=== PATIENT | male | born 1935 | race Caucasian/White ===

== ENCOUNTER 2019-10-07 23:20 | Inpatient (IN) | payer MEDICARE ==
[2019-10-08] MEDS ORDERED: Furosemide 40 MG/4 ML VIAL ONE (00:27)
[2019-10-08] MEDS ORDERED: Acetaminophen 500 MG TAB ONE (00:37)
--- NOTE | 2019-10-08 00:51 | PDOC.FPRHP ---
- History of Present Illness Chief Complaint: shortness of breath History of Present Illness: Mr. Borges is an 84yoM who presents as a transfer from [place] for increasing shortness of breath. He has a known history of congestive heart failure. He states the shortness of breath has been worsening over the last several weeks. He is unable to give much more history than this, he is a very poor historian. He states he lives alone in [place] on a ranch. ED Course: 40mg IV lasix, 1g Tylenol - Allergies/Adverse Reactions Allergies Allergy/AdvReac Type Severity Reaction Status Date / Time diltiazem Allergy Verified 10/08/19 02:48 - Home Medications Medication Instructions Recorded Confirmed Type Allopurinol 100 mg PO DAILY 10/08/19 10/08/19 History Carvedilol [Coreg] 25 mg PO BID 10/08/19 10/08/19 History Furosemide [Lasix] 40 mg PO DAILY 10/08/19 10/08/19 History cloNIDine [Catapres] 0.1 mg PO DAILY 10/08/19 10/08/19 History - History PMHx: CHF CKD (Previously on dialysis) H/o [place] (~2014) Chronic atrial fibrillation Gout HTN PSHx: Denies, or does not recall. FHx: Unable to ascertain Social: smoking history, former smoker. drinks 3 beers/day. - Review of Systems General: denies: fever/chills, weight/appetite/sleep changes, night sweats Eyes: denies: eye pain, vision changes ENT: denies: nasal congestion, rhinorrhea Respiratory: reports: shortness of breath, exercise intolerance. denies: cough , congestion Cardiovascular: reports: edema, paroxysmal nocturnal dyspnea, orthopnea. denies : chest pain, palpitation Gastrointestinal: denies: nausea, vomiting, diarrhea, constipation, abdominal pain Genitourinary: denies: incontinence, dysuria, polyuria Skin: denies: rashes, lesions, jaundice Musculoskeletal: reports: swelling. denies: pain, tenderness, stiffness Neurological: denies: numbness, syncope, seizure - Vital signs BP: 122/58, Pulse: 89, Resp: 20, Temp: 98.9 (Oral), Pain: 7, O2 sat: 99 on (3L Oxygen), Time: 10/07/2019 23:22 Weight 132kg - Physical Exam Constitutional: NAD, awake, alert and oriented -Constitutional: tired appearing HEENT: normocephalic and atraumatic, PERRLA, EOMI, conjunctiva clear, grossly normal vision, grossly normal hearing, MMM -HEENT: Bilateral ectropion Neck: supple, trachea midline Heart: normal S1/S2, no murmurs/rubs/gallops, pulses present -Heart: Irregularly irregular rhythm, tachycardic Lungs: no respiratory distress -Lungs: Poor air movement. Crackles heard in the lung bases bilaterally. Abdomen: soft, non-tender, bowel sounds present Musculoskeletal: normal structure, normal tone Neurological: no focal deficit, normal sensation -Skin: Significant venous stasis dermatitis to BLE Heme/Lymphatic: no unusual bruising or bleeding Psychiatric: normal mood and affect, other (unable to provide medical history, although A&O x3.) FMR H&P: Results - Labs Result Diagrams: 10/09/19 07:18 10/09/19 07:18 Lab results: From [place]: Cr 5.2, BUN 68.3, Na 137, K 4.4, Cl 92, CO2 27, Glucose 80. Lactic acid 3.6 Troponin 0.465 BNP 4313.4 Hb 14.5 Hct 44.5 Platelets 141 WBC 23.73 21% bands, 58% neutrophils UA: Dark yellow, Blood: large, Protein >300, Nitrite and Leuk est negative, WBC 5-10, RBC 50-100, Bacteria trace, Gran cast few, rbc cast few. - EKG Interpretation EKG: Atrial fibrillation - Radiology Interpretation Chest x-ray Status: pending, report reviewed by me (Report pending. Appears fluid overloaded.) FMR H&P: A/P - Problem List (1) Congestive heart failure Current Visit: Yes Status: Acute Code(s): I50.9 - HEART FAILURE, UNSPECIFIED (2) Acute exacerbation of congestive heart failure Current Visit: Yes Status: Acute Code(s): I50.9 - HEART FAILURE, UNSPECIFIED (3) HTN (hypertension) Current Visit: Yes Status: Acute Code(s): I10 - ESSENTIAL (PRIMARY) HYPERTENSION (4) Atrial fibrillation Current Visit: Yes Status: Acute Code(s): I48.91 - UNSPECIFIED ATRIAL FIBRILLATION (5) Gout Current Visit: Yes Status: Acute Code(s): M10.9 - GOUT, UNSPECIFIED (6) NSTEMI (non-ST elevated myocardial infarction) Current Visit: Yes Status: Acute Code(s): I21.4 - NON-ST ELEVATION (NSTEMI) MYOCARDIAL INFARCTION - Plan CHF exacerbation - Echo here from 2014 showed EF 55-60%. - ECHO ordered for AM. - IV Lasix 80mg total tonight. Strict I/O. - Continue home coreg. NSTEMI - Tropinin 0.465 > 0.532. Trending trops. - Will initiate heparin drip and discuss with cardiology in the morning. VALERIE on CKD vs ESRD - He has a history of renal disease requiring dialysis for ~1.5 years in 2014 and was followed by Dr. Branch - Will consult Dr. Branch in the morning. - It is possible that the patient will require dialysis if he is unable to diurese. Bacterial pneumonia, presumed - Lactic acidosis of 3.6, WBC 23 with 21%bands, Procal 64 - Will empirically treat with Vancomycin and Cefepime - Repeat CBC in the am. HTN - Normotensive. Will continue coreg. Dispo: Stable Code: Full PCP: Julissa Savage We will need to contact Dr. Briceño's office tomorrow for medical records and complete medication reconciliation. FMR H&P: Upper Level - Plan Date/Time: 10/08/1949 IQasim DO, have evaluated this patient and agree with findings/plan as outlined by internal recruiter resident. Pertinent changes/additions are listed here. I was present for the entire history and physical exam and discussed in detail the assessment and plan with Dr. Nieves. 84 yo M with PMH of CKD that was previously on HD; however, was stopeed last year as renal function recovered, additionally has h/o HF. Unaware of chronic medications as his son is primary cat driver who helps with medication. Presents with one week history of worsening shortness of breath, denies productive cough and fever, Denies CP. Reports orthopnea and REYES. Pt was seen in outside ED and noted to have new O2 requirement in addition to white count with left shift. Additionally, pt had NSTEMI level troponin and elevated CKMB, but denies chest pain. On exam pt has s/s with chronoc fluid overload and LE pitting edema to knees. He is sitting in chair at bedside, unable to lay flat. He was given 40mg IV lasix. We will admit to telemetry and treat NSTEMI with heparin drip, CXR concerning for pneumonia, will treat with empiric abx. Hold lasix and fluids at this point for concern of mixed infectious and chf picture. Cont supplemental O2. Pt has AG acidosis likely 2/2 lactic acidosis, VSS, hold fluids and monitor volume status. Trend labs. Consult cards and nephro in am. Addendum - Attending - Attending Attestation Date/Time: 10/09/19 [id number] I personally evaluated the patient and discussed the management with Dr. Nieves I agree with the History, Examination, Assessment and Plan documented above with any addition or exceptions noted below - 84 yo mal with h/o CHF, A-fib, CKD with h/o HD in past presented c/o SOB and cough progressive over the last 2- 3 weeks. Denies any fever or sputum production. c/o right shoulder pain but denies any falls. Pain with movement. PMH/PSH/SH reviewed and agree with resident's documentation. Afebrile VSS. Exam repeated by me and agree with resident's documentation. Labs: WBC=17.1, H/H=14.7/45.4, Mhi=678, Na= 136, K=4.8 , Cl=92, CO2=20, BUN/Cr= 78/5.48 Diff= 58N/37B/4L. A/P: 1) VALERIE with CKD- nephrology consulted; continue gentle fluids. Monitor electrolytes. 2) Leukocytosis and bandemia- possible CAP- continue current abx.
[2019-10-08 00:59] LABS: CKMB 61.6 ng/mL (0-6.6)
[2019-10-08] MEDS ORDERED: Ondansetron PF 4 MG/2 ML Vial IVP PRN (01:17)
[2019-10-08] MEDS ORDERED: Senokot S 8.6-50 MG TAB PO PRN (01:17)
[2019-10-08 01:45] LABS: Hemoglobin 14.5 g/dL (14.0-18.0); Platelet Count 124 thou/uL (130-400)
[2019-10-08] MEDS ORDERED: Vancomycin HCl 1.5 GM in Sodium Chloride 0.9% 250 ML 300 ML IVPB SCH (02:00)
[2019-10-08] MEDS ORDERED: Aspirin Chewable 81 MG TAB ONE (02:05)
[2019-10-08] MEDS ORDERED: Furosemide 40 MG/4 ML VIAL SLOW IVP SCH (02:15)
[2019-10-08] MEDS: Cefepime 1 GM in Sodium Chloride 0.9% 100 ML IVPB SCH (03:36)
[2019-10-08 03:47] LABS: Band 37 % (5-11); Hemoglobin 14.7 g/dL (14.0-18.0); Lymphocytes 4 % (21-51); MDiff Complete? YES; Mean Corpuscular HGB CONC 32.4 g/dL (32.0-36.0); Mean Corpuscular Hemoglobin 31.2 pg (27.0-31.0); Mean Corpuscular Volume 96.3 fL (78.0-98.0); Mean Platelet Volume 8.5 fL (7.4-10.4); Monocytes 1 % (0-10); Neutrophil 58 % (42-75); Platelet Count 115 thou/uL (130-400); Platelet Morphology Comment Appears Decreased; RBC Distribution Width 13.6 % (11.5-14.5); Red Blood Cell (RBC) Count 4.71 mill/uL (4.70-6.10); White Blood Cell (WBC) Count 17.1 thou/uL (4.8-10.8)
[2019-10-08 03:56] LABS: ALT (SGPT) 55 U/L (8-55); AST (SGOT) 238 U/L (5-34); Albumin 3.2 g/dL (3.4-4.8); Alkaline Phosphatase 62 U/L (40-110); Anion Gap 29 mmol/L (10-20); BUN (Urea Nitrogen) 78 mg/dL (8.4-25.7); Bilirubin, Total 1.6 mg/dL (0.2-1.2); Calc. Creatinine Clearance 18 mL/min (70-130); Calcium 8.3 mg/dL (7.8-10.44); Carbon Dioxide 20 mmol/L (23-31); Chloride 92 mmol/L (98-107); Estimated GFR-MDRD 10; Globulin 4.6 g/dL (2.4-3.5); Glucose 63 mg/dL (83-110); Potassium 4.8 mmol/L (3.5-5.1); Protein, Total 7.8 g/dL (5.8-8.1); Sodium 136 mmol/L (136-145)
[2019-10-08] MEDS: Heparin 10,000 UNITS/ 10 ML VIAL SLOW IVP SCH ×3 (04:12→18:31)
[2019-10-08] MEDS: Heparin 25,000 units/D5W 500 ML IVPB SCH (04:13)
[2019-10-08 04:14] LABS: Critical Call Chem Troponin I RESULT DECREASING; Troponin I 0.494 ng/mL (< 0.028)
[2019-10-08 06:13] LABS: Critical Call Chem Troponin I RESULT DECREASING; Troponin I 0.439 ng/mL (< 0.028)
--- NOTE | 2019-10-08 07:55 | RAD ---
EXAM: CHEST ONE VIEW HISTORY: Right shoulder pain and dyspnea. Elevated troponin. CHF exacerbation. COMPARISON: 10/07/2019 at 1825 hours FINDINGS: Cardiac silhouette remains in enlarged. Pulmonary vasculature is within normal limits. Pleural and pa renchymal changes are seen in the left lung base which may represent small left pleural effusion and atelectasis. No consolidation is seen. No other interval change IMPRESSION: 1. Cardiomegaly without overt CHF. 2. Small left pleural effusion and atelectasis.
[2019-10-08] MEDS ORDERED: Furosemide 40 MG TAB PO SCH (09:00)
[2019-10-08] MEDS: Carvedilol 25 MG TAB PO SCH ×2 (09:02→21:38)
[2019-10-08] MEDS: Acetaminophen 325 MG TAB PO PRN (09:02)
--- NOTE | 2019-10-08 10:57 | CON ---
DATE OF CONSULTATION: 10/08/2019 HISTORY OF PRESENT ILLNESS: Mr. Borges is an 84-year-old white male with known history of chronic renal failure secondary to a presumed hypertensive nephropathy, status post ATN, status post maintenance hemodialysis at one time with renal recovery and admitted for progressive shortness of breath. Working diagnosis is that he may have CHF. He has been diuresed in the last few days. Chest x-ray, repeat, showed no overt CHF or no evidence of pneumonia per se. We are now being consulted for this progressive azotemia. REVIEW OF SYSTEMS: Positive for shortness of breath. No chest pain. Denies any overt fever or chills. No nausea. No vomiting. Decreased appetite. Decreased energy level. No productive cough. No fever or chills. No gross hematuria. No dysuria. No urinary frequency. MEDICATIONS: Currently on, 1. Cefepime 1 g IV daily. 2. Furosemide 40 mg x1 dose. 3. Heparin IV drip. 4. Status post vancomycin. Home medications included, 1. Allopurinol 150 mg tablet once a day. 2. Carvedilol 25 mg p.o. b.i.d. 3. Furosemide 40 mg daily. 4. Clonidine 0.1 mg p.o. daily. PAST MEDICAL HISTORY: Status post CHF, chronic AFib, history of gout, status post acute kidney injury from ATN, longstanding hypertension, chronic renal failure from presumed hypertensive nephropathy. PAST SURGICAL HISTORY: Status post AV fistula placement, status post cuffed hemodialysis catheter placement, status post umbilical hernia repair, status post cataract surgery, and status post saphenous vein ablation. SOCIAL HISTORY: The patient is a , lives alone. No children. 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 He lives in [place]. Currently, no smoking, no alcohol intake, status post blood transfusion. ALLERGIES: QUESTION AYAD DILTIAZEM. TRAUMA: None. IMMUNIZATIONS: Up-to-date. HOSPITALIZATION: Please see past medical history. FAMILY HISTORY: No family history of ESRD. PHYSICAL EXAMINATION: VITAL SIGNS: Blood pressure is noted at 105/56, heart rate 103, respiratory rate 20, temperature 97.6, and O2 saturation 99% on 3 L. GENERAL: Noted to be awake, alert, comfortable, not in overt distress. SKIN: Adequate turgor. HEENT: He has pinkish conjunctivae. Anicteric sclerae. NECK: No neck mass. No carotid bruits. No JVD. CHEST: No deformities. LUNGS: Decreased breath sounds. HEART: Normal sinus rhythm. No murmur. No gallops. No rubs. ABDOMEN: Globular, soft, and nontender. No masses. EXTREMITIES: Trace edema. No deformities. DIAGNOSTIC DATA: Chest x-ray of October 07, 2019, shows no overt CHF, no infiltrates. LABORATORY DATA: October 08, 2019; white count 17.1, hemoglobin 14.7, sodium 136, potassium 4.8, chloride 92, carbon dioxide 20, BUN 78, creatinine 5.48, calcium 8.3, and albumin 3.2. Troponin I 0.439. Urinalysis - proteinuria, red cells, and some granular cast. ASSESSMENT AND PLAN: 1. Acute kidney injury on top of his chronic renal failure, progressive azotemia. The possibility of a superimposed ATN remains. However, due to previous diuretic regimen, we will start the patient on albumin 25 g IV q.6 to see if there can be some stabilization of the renal function. If renal function will further worsen , the patient may have to be on a dialytic intervention. 2. Shortness of breath. Empiric IV antibiotics. Chest x-ray is actually showing no overt CHF. However, due to the elevated white count and bandemia, the patient is being treated for presumed infection. The exact etiology remains unclear. 3. Overall prognosis remains guarded with this patient. Agree with current management. Job ID: [id number] MTDD
[2019-10-08] MEDS ORDERED: Prevnar 13-Val Conj/PF 0.5 ML SYRINGE IM ONE (21:00)
[2019-10-09] MEDS: Heparin 25,000 units/D5W 500 ML IVPB SCH (00:43)
[2019-10-09 03:23] LABS: Vancomycin, Random 13.9 ug/mL (See Comment)
[2019-10-09] MEDS: Cefepime 1 GM in Sodium Chloride 0.9% 100 ML IVPB SCH (03:24)
[2019-10-09] MEDS ORDERED: Vancomycin 1.5 GRAM/300 ML BAG 1.5 GM in Premix Bag 1 BAG IVPB SCH (04:00)
[2019-10-09] MEDS: Vancomycin 1 GM in Premix Bag 1 BAG IVPB SCH (04:26)
[2019-10-09] MEDS ORDERED: Albumin 25% 25 GM/100 ML BOT IVPB ONE (07:05)
[2019-10-09] MEDS: Heparin 10,000 UNITS/ 10 ML VIAL SLOW IVP SCH (07:09)
--- NOTE | 2019-10-09 07:12 | PDOC.FM ---
- Subjective Subjective: Patient was laying in bed, said he was feeling tired this morning. Denies CP, SOB, difficulty breathing. He mouth breaths when sleeping and says his mouth is dry because he hasnt taken water overnight. He has no new complaints. He does mention right shoulder pain that is unchanged from prior. - Objective Vital Signs & Weight: Vital Signs (12 hours) Temp Pulse Resp BP Pulse Ox 10/09/19 03:01 98.6 F 78 20 100/56 L 96 10/08/19 23:43 97.5 F L 88 20 116/56 L 95 10/08/19 21:19 97.4 F L 99 20 110/64 96 Weight Weight 134.535 kg I&O: 10/08/19 10/09/19 10/10/19 06:59 06:59 06:59 Intake Total 420 450 Output Total 300 450 Balance 120 0 Result Diagrams: 10/09/19 07:18 10/09/19 07:18 Phys Exam - Physical Examination Constitutional: NAD MM dry Respiratory: no wheezing, clear to auscultation bilateral (exam limited d/t body habitus) Cardiovascular: RRR, no significant murmur Gastrointestinal: soft, non-tender, positive bowel sounds chronic BLE skin changes, 1+ pitting edema BLE chronic Psychiatric: normal affect Skin: cap refill <2 seconds Deviation from normal: R shoulder tender to palpation Dx/Plan (1) CAP (community acquired pneumonia) Code(s): J18.9 - PNEUMONIA, UNSPECIFIED ORGANISM Status: Acute (2) Atrial fibrillation Code(s): I48.91 - UNSPECIFIED ATRIAL FIBRILLATION Status: Acute (3) Congestive heart failure Code(s): I50.9 - HEART FAILURE, UNSPECIFIED Status: Acute (4) Gout Code(s): M10.9 - GOUT, UNSPECIFIED Status: Acute (5) HTN (hypertension) Code(s): I10 - ESSENTIAL (PRIMARY) HYPERTENSION Status: Acute (6) NSTEMI (non-ST elevated myocardial infarction) Code(s): I21.4 - NON-ST ELEVATION (NSTEMI) MYOCARDIAL INFARCTION Status: Acute - Plan Plan: Bacterial pneumonia, presumed - Lactic acidosis of 3.6, WBC 23 with 21%bands, Procal 64 - Continue empiric treatment with Vancomycin and Cefepime - Repeat CBC showed WBC increased to 20. CHF, concern for exacerbation - Echo here from 2014 showed EF 55-60%. - ECHO completed, read pending - s/p IV Lasix 80mg - Continue home coreg (dose was held this am for low BP) NSTEMI - Troponin 0.465 > 0.532, downtrended - Cardiology consulted, awaiting recommendations - Has been on heparin drip, will discontinue this morning VALERIE on CKD vs ESRD - He has a history of renal disease requiring dialysis for ~1.5 years in 2014 and was followed by Dr. Branch - Will consult Dr. Branch in the morning. - It is possible that the patient will require dialysis if he is unable to diurese. Thrombocytopenia - decreased from 120 on admission to 80 today. Heparin going for 2 days, HIT less likely. Will continue to monitor. R shoulder pain - present since admission, tender to palpation - tramadol, tylenol prn HTN - Normotensive. Will continue coreg. Dispo: Stable Code: Full PCP: Dr. Briceño [place] Records from PCP have been requested. On follow up exam later this morning patient seemed to have increased work of breathing, satting 96% on 3L. Ordered repeat CXR, duoneb. No tachycardia. Will call [facility] to see if cultures were done. Continue to closely monitor respiratory status Addendum - Attending - Attending Attestation Date/Time: 10/09/19 3559 I personally evaluated the patient and discussed the management with Dr. Lux I agree with the History, Examination, Assessment and Plan documented above with any addition or exceptions noted below - Patient laying in bed and in mild resp distress. Family has noticed the heavier breathing since she arrived. Patient denies any pain except for right shoulder. Poor appetite. Afebrile VSS. A/P: 1) Possible pneumonia - continue current abx. Will contact [facility] and check on blood culture report. 2) VALERIE with CKD - minimal improvement; continue albumin; appreciate nephrology assistance. -
[2019-10-09 07:26] LABS: Hemoglobin 13.3 g/dL (14.0-18.0); Mean Corpuscular HGB CONC 32.8 g/dL (32.0-36.0); Mean Corpuscular Hemoglobin 32.1 pg (27.0-31.0); Mean Corpuscular Volume 97.8 fL (78.0-98.0); Platelet Count 84 thou/uL (130-400); RBC Distribution Width 13.6 % (11.5-14.5); Red Blood Cell (RBC) Count 4.13 mill/uL (4.70-6.10); White Blood Cell (WBC) Count 20.4 thou/uL (4.8-10.8)
[2019-10-09 07:41] LABS: MDiff Complete? YES; Nucleated RBC 11 % (0); Platelet Morphology Comment Appears Decreased; RBC Morphology Normal; Reactive Lymphocytes 1 % (0-10)
[2019-10-09 07:42] LABS: Anion Gap 21 mmol/L (10-20); BUN (Urea Nitrogen) 97 mg/dL (8.4-25.7); Calc. Creatinine Clearance 18 mL/min (70-130); Calcium 7.3 mg/dL (7.8-10.44); Carbon Dioxide 23 mmol/L (23-31); Chloride 93 mmol/L (98-107); Estimated GFR-MDRD 9; Glucose 158 mg/dL (83-110); Potassium 4.3 mmol/L (3.5-5.1); Sodium 133 mmol/L (136-145)
[2019-10-09] MEDS: Albumin 25% 25 GM/100 ML BOT IVPB SCH ×3 (07:57→21:16)
[2019-10-09] MEDS: Carvedilol 25 MG TAB PO SCH ×2 (08:39→21:16)
[2019-10-09] MEDS: Acetaminophen 325 MG TAB PO PRN (08:59)
--- NOTE | 2019-10-09 09:20 | PRG ---
DATE OF SERVICE: 10/09/2019 SUBJECTIVE: Mr. Borges is an 84-year-old white male, who was admitted for shortness of breath. Chest x-ray did not show any overt CHF. However, the concern is that he may have underlying congestive heart failure. In addition, he is being also treated for a possible pulmonary infection. He is on empiric IV antibiotics. We are following up this patient for his acute kidney injury on top of his chronic renal failure. The urine sediment that I reviewed from the outside hospital suggested he may have acute tubular necrosis. We are doing empiric volume repletion with this patient at the present time. I have started him on albumin infusion at 25 g IV q.6. If no further improvement in the next 24 to 48 hours, we may need to initiate dialysis with this patient. He is currently complaining of right shoulder joint pain. OBJECTIVE: VITAL SIGNS: Blood pressure 104/46, heart rate 82 respiratory rate 24 temperature 97.6, pulse ox 96%. GENERAL: Noted to be awake, obese, comfortable, not in overt distress. SKIN: Adequate turgor. HEENT: He has pinkish conjunctivae. Anicteric sclerae. NECK: No neck mass. No carotid bruits. No JVD. CHEST: No deformities. LUNGS: Clear breath sounds. HEART: Normal sinus rhythm. No murmur. No gallops. No rubs. ABDOMEN: Globular, soft, nontender. No masses. EXTREMITIES: Trace edema. MEDICATIONS: Medications of October 09, 2019, reviewed. LABORATORY DATA: October 09, 2019; white count 20.4, hemoglobin 13.3. Sodium 133, potassium 4.3, chloride 93, carbon dioxide 23, BUN 97, creatinine 5.77, glucose 158, calcium 7.3. Procalcitonin 56.5. ASSESSMENT AND PLAN: 1. Acute kidney injury on top of his chronic renal failure, unimproved renal function. We will try empiric albumin infusion 25 g IV q.6. If no improvement, consider initiating hemodialysis with this patient. I did look at his old AV fistula and this is nonfunctional. 2. Leukocytosis/bandemia, unclear etiology. Empiric IV antibiotics. 3. Overall prognosis remains guarded with this patient. Overall, agree with current management. Job ID: [id number]
--- NOTE | 2019-10-09 10:52 | RAD ---
PORTABLE CHEST: INDICATION: Shortness of breath. COMPARISON: 10/07/2019. FINDINGS: Cardiomegaly with vascular congestion. Small bilateral effusions and bibasilar atelectasis. Not sign ificantly changed from yesterday. IMPRESSION: Stable chest finding. POS: [facility]
--- NOTE | 2019-10-09 13:43 | PDOC.BPN ---
- Brief Progress Note Have reevaluated patient throughout today. BP has been 80-90s/50s. Pulse 60s. No increased O2 requirement today. Continues to have mild increased work of breathing. Patient has been sleeping last 2 times I was in the room. Case discussed with Dr. Branch. Continue albumin and will give 250mL bolus. Echo read pending. Prelim gram variable bacilli blood cultures positive 08/19, fax with official report not received. Family member noted after patient given duoneb that he seemed to start wheezing for a time after it.
[2019-10-09] MEDS ORDERED: Sodium Chloride 0.9% 250 ML IV SCH (13:45)
[2019-10-09 16:29] LABS: Hemoglobin 12.9 g/dL (14.0-18.0); Mean Corpuscular HGB CONC 32.3 g/dL (32.0-36.0); Mean Corpuscular Hemoglobin 31.5 pg (27.0-31.0); Mean Corpuscular Volume 97.8 fL (78.0-98.0); Platelet Count 80 thou/uL (130-400); RBC Distribution Width 13.5 % (11.5-14.5); Red Blood Cell (RBC) Count 4.09 mill/uL (4.70-6.10); White Blood Cell (WBC) Count 17.7 thou/uL (4.8-10.8)
[2019-10-09 16:48] LABS: Band 15 % (5-11); Dohle Bodies SLIGHT; MDiff Complete? YES; Metamyelocyte 1 % (0-0); Monocytes 9 % (0-10); Neutrophil 75 % (42-75); Platelet Morphology Comment Appears Decreased; Polychromasia SLIGHT = 2-3 cells (100X) (0-2/hpf); Toxic Granulation SLIGHT; Vacuoles SLIGHT
[2019-10-09 17:29] LABS: Actual Bicarbonate (HCO3a) 27.2 mEq/L (22-28); CO2 Tension 55.2 mmHg (35.0-45.0); Calcium, Ionized 0.94 mmol/L (1.12-1.30); Carboxyhemoglobin (COHb) 0.9 gm% (0.0-3.0); Hemoglobin (Hb) 13.2 g/dL (14.0-18.0); O2 Tension (PaO2) 80.9 mmHg (> 60.0); Potassium - ABG Lab 4.23 mmol/L (3.70-5.30); pH, Arterial 7.31 (7.35-7.45)
[2019-10-09 17:32] LABS: Puncture Site RR
[2019-10-09] MEDS ORDERED: Furosemide 20 MG/2 ML VIAL SLOW IVP SCH (18:30)
--- NOTE | 2019-10-09 19:18 | CON ---
DATE OF CONSULTATION: 10/09/2019 REASON FOR CONSULTATION: Congestive heart failure, advanced renal disease, atrial fibrillation. HISTORY OF PRESENT ILLNESS: Mr. Borges is an 84-year-old gentleman. The patient actually was doing well up until a few weeks ago. 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 However, he was admitted to the hospital apparently with difficulty breathing and progressive lower extremity edema and near end-stage renal disease. Apparently, his legs have been becoming more edematous for several months. He went to a vein doctor. They did some vein procedures. The patient does not know that he has had atrial fibrillation, but it appears to be chronic. The patient otherwise has been in relatively good physical condition up until recently. PAST MEDICAL HISTORY: History of renal failure and was actually transiently on dialysis. I do not see those records here in the computer. I will check further, it could potentially be under a different medical record number. The patient also apparently has blood cultures, which were positive from the hospital in [place]. The patient said he saw a fire hydrant mechanic about 10 years ago, but he did not know what the findings were at that time. ALLERGIES: THE PATIENT ALSO HAD AN ALLERGY TO DILTIAZEM. WE DO NOT KNOW THE DETAILS. HOME MEDICATIONS: 1. Carvedilol 25 mg twice a day. 2. Lasix 40 mg a day. 3. Allopurinol. 4. Clonidine if needed. SOCIAL HISTORY: It looks like he has a very supportive family. He drinks about 3 beers per day. Former smoker many years ago. REVIEW OF SYSTEMS: CONSTITUTIONAL: Positive for weakness and fatigue recently. VISION: No changes. HEARING: No changes. PULMONARY: No cough or wheezing. CARDIAC: As outlined above. GASTROINTESTINAL: No nausea, vomiting, or diarrhea. SKIN: No rashes. He has chronic venous stasis changes in his legs. PHYSICAL EXAMINATION: VITAL SIGNS: Blood pressure is in the mid 90s systolic, pulse is 80 to 90, it is irregular. LUNGS: He is taking somewhat shallow breaths. It is clear anteriorly and laterally. CARDIAC: Irregularly irregular. I do not hear a murmur, rub, or gallop. ABDOMEN: Obese, nontender. No hepatosplenomegaly. EXTREMITIES: There is a moderate to severe edema with chronic venous stasis changes and some cracks in the skin. PERTINENT LABORATORY DATA: The troponin of 0.439 that was drawn yesterday, 0.532 on the . The patient has increased AST liver tests at 238. His creatinine is 5.7, GFR is 9. The patient also has a low platelet count at 80,000. Platelet count has been low during today. It was actually normal on admission or at least in the low normal range with the platelet count initially of 124, but now down to 80. IMAGING STUDIES: Chest x-ray looks like some pulmonary vascular congestion with cardiomegaly. Echocardiogram shows ejection fraction to be approximately 50% to 55% with severely enlarged left atrium. The aortic valve has aortic stenosis, moderate to severe. Peak gradient 44 mmHg, mean gradient 30 mmHg. EKG shows atrial fibrillation with controlled rate. ASSESSMENT: 1. Congestive heart failure, diastolic. 2. Aortic stenosis, moderate to severe. 3. History of peripheral vascular disease. I do not feel popliteal pulses. I do not feel pedal pulses, but he has this chronic edema. It makes it difficult to feel pulses. However, I do not feel the good femoral pulses either. 4. Low platelet count. 5. Possible end-stage renal disease. 6. Relatively low blood pressure. Reports indicate that the blood cultures were also positive from [place]. Gram variable bacilli positive 2/2, wait for the final report to wonder if perhaps his legs could be the source of this. At the present time, the patient has multiple problems. The prognosis is guarded. I think he is still in heart failure. We will give him a very low dose of Lasix and continue to follow. With this constellation of problems, the options may be somewhat limited. He may not be able to tolerate dialysis well due to the low blood pressure. This case scenario would be what caused him to decompensate was the infection. If that got better, things would improve, not a candidate for any type of interventional cardiac therapy at the present time. We will follow closely with you. Job ID: [id number]
--- NOTE | 2019-10-09 22:48 | RAD ---
RADIOGRAPH CHEST 1 VIEW: DATE: 10/09/2019 TIME: 10:37 PM HISTORY: 84-year-old male with dyspnea COMPARISON: 10/09/2019 10:36 AM FINDINGS: Cardiomegaly and large body habitus makes it difficult to evaluate the left lower lobe. Furthermore, the lungs are now hypoinflated. No gross consolidation is visualized outside of the left lower lobe. No pneumothorax. Other than the shallow inspiration, no interval change is detected. IMPRESSION: Cardiomegaly. Limited study. No major interval change identified.
[2019-10-09 22:58] LABS: Actual Bicarbonate (HCO3a) 27.5 mEq/L (22-28); Base Excess (BEa) -0.8 mEq/L (-2.0 to +3.0); Calcium, Ionized 0.92 mmol/L (1.12-1.30); Carboxyhemoglobin (COHb) 1.2 gm% (0.0-3.0); Hemoglobin (Hb) 13.2 g/dL (14.0-18.0); O2 Tension (PaO2) 104.9 mmHg (> 60.0); Potassium - ABG Lab 3.94 mmol/L (3.70-5.30); pH, Arterial 7.26 (7.35-7.45)
[2019-10-09 23:01] LABS: CO2 Tension 62.9 mmHg (35.0-45.0)
--- NOTE | 2019-10-09 23:03 | PDOC.EVN ---
Event Note - Event Note Event Note: Received page that patient was more somnolent and working harder to breathe. Upon evaluation, he was A&O x 3. He had increased WOB. When moving him up in the bed, his face turned purple and he began coughing. Ordered stat chest x-ray which showed worsening fluid overload. Ordered stat ABG. Plan to transfer to [facility] to initiate BiPap. Discussed case with Dr. Davila and attending Dr. Haley. Dispo: Guarded.
[2019-10-10] MEDS: Albumin 25% 25 GM/100 ML BOT IVPB SCH (02:10)
[2019-10-10] MEDS: Cefepime 1 GM in Sodium Chloride 0.9% 100 ML IVPB SCH ×2 (02:15→03:50)
[2019-10-10 04:06] LABS: Anion Gap 21 mmol/L (10-20); BUN (Urea Nitrogen) 110 mg/dL (8.4-25.7); Calc. Creatinine Clearance 18 mL/min (70-130); Calcium 7.6 mg/dL (7.8-10.44); Carbon Dioxide 27 mmol/L (23-31); Chloride 92 mmol/L (98-107); Estimated GFR-MDRD 10; Glucose 112 mg/dL (83-110); Sodium 136 mmol/L (136-145)
[2019-10-10 04:07] LABS: Vancomycin, Random 19.6 ug/mL (See Comment)
[2019-10-10] MEDS: Vancomycin 1 GM in Premix Bag 1 BAG IVPB SCH (04:31)
[2019-10-10] MEDS ORDERED: Vancomycin HCl 750 MG in Sodium Chloride 0.9% 250 ML 250 ML IVPB SCH (05:00)
[2019-10-10 06:35] LABS: Band 32 % (5-11); Lymphocytes 3 % (21-51); Monocytes 5 % (0-10); Neutrophil 52 % (42-75)
[2019-10-10 06:36] LABS: Metamyelocyte 2 % (0-0); Promyelocytes 0 % (0-0)
--- NOTE | 2019-10-10 08:58 | PDOC.FM ---
- Subjective Subjective: Mr. Borges was on bipap this am. He was mumbling some things but unable to have a conversation with him. He reportedly did not tolerate bipap well last night and had it on intermittently. - Objective Vital Signs & Weight: Vital Signs (12 hours) Temp Pulse Resp Pulse Ox 10/10/19 07:21 97.0 F L 10/10/19 07:10 100 10/10/19 04:03 97.9 F 10/10/19 00:00 98.4 F 10/09/19 23:23 88 33 H 98 Weight Weight 133.084 kg Most Recent Monitor Data Heart Rate from ECG 69 NIBP 113/72 NIBP BP-Mean 85 Respiration from ECG 29 SpO2 96 I&O: 10/09/19 10/10/19 10/11/19 06:59 06:59 06:59 Intake Total 450 1540 Output Total 450 650 Balance 0 890 Result Diagrams: 10/09/19 16:16 10/10/19 03:07 Phys Exam - Physical Examination on bipap Respiratory: clear to auscultation bilateral Cardiovascular: no significant murmur (difficult auscultation due to body habitus and bipap sounds, afib) Gastrointestinal: non-tender, positive bowel sounds 2+ pitting edema RLE. small amount LLE . chronic changes BLE Neurological: non-focal Dx/Plan (1) CAP (community acquired pneumonia) Code(s): J18.9 - PNEUMONIA, UNSPECIFIED ORGANISM Status: Acute (2) Atrial fibrillation Code(s): I48.91 - UNSPECIFIED ATRIAL FIBRILLATION Status: Acute (3) Congestive heart failure Code(s): I50.9 - HEART FAILURE, UNSPECIFIED Status: Acute (4) Gout Code(s): M10.9 - GOUT, UNSPECIFIED Status: Acute (5) HTN (hypertension) Code(s): I10 - ESSENTIAL (PRIMARY) HYPERTENSION Status: Acute (6) NSTEMI (non-ST elevated myocardial infarction) Code(s): I21.4 - NON-ST ELEVATION (NSTEMI) MYOCARDIAL INFARCTION Status: Acute - Plan Plan: Acute hypoxic hypercapneic respiratory failure 2/2 presumed Bacterial pneumonia - Lactic acidosis of 3.6, WBC 23 with 21%bands, Procal 64, WBC now downtrending - Continue empiric treatment with Vancomycin and Cefepime - official blood cx report pending, prelim gram variable bacilli 2/2 - started bipap. ABG worsened this am though patient has not been on bipap consistently it sounds like - Pulm consulted CHF, concern for exacerbation - ECHO- diastolic CHF, mod/severe aortic stenosis - s/p IV Lasix 80mg on admission. - Continue home coreg (dose held for low BP) - Cardiology consulted, gave another dose of lasix NSTEMI - Troponin 0.465 > 0.532, downtrended - Was on heparin gtt, discontinued 10/08 VALERIE on CKD vs ESRD - He has a history of renal disease requiring dialysis for ~1.5 years in 2014 and was followed by Dr. Branch - Dr. Branch consulted, giving albumin. Dialysis a possibility as renal fxn not improving much. Appreciate recommendations. Atrial fibrillation, chronic - appreciate cardiology recs. Has been rate controlled - was not on therapeutic anticoagulation at home, patient seemed unaware of this. Chadsvasc score 4, high risk with 4.8% stroke. Hasbled score 2, moderate bleeding risk, 4.1%. Risks/benefits will need to be discussed with patient/MPOA for usp anticoagulation. He seems to be significant fall risk. Thrombocytopenia - decreased from 120 on admission to 80. Heparin going for 2 days. Will continue to monitor. - discussed with clinical pharmacist. Recommended lovenox for ppx or therapeutic at this time. May check anti-10a levels. Metamyelocytes - smear review pending R shoulder pain - present since admission, tender to palpation - tramadol, tylenol prn HTN - Normotensive. Will continue coreg. Dispo: Stable Code: Full PCP: Julissa Savage Addendum - Attending - Attending Attestation Date/Time: 10/10/19 [id number] I personally evaluated the patient and discussed the management with Dr. Lux I agree with the History, Examination, Assessment and Plan documented above with any addition or exceptions noted below - Patient on BiPap; feeling a little better. Afebrile VSS. A/P: 1) Volume overload secondary to ESRD- continue BiPap; nephrology planning on starting dialysis today. 2) HTN- stable. 3) ESRD - start HD. 4) Possible pneumonia- continue IV abx. Appreciate pulmonary assistance. .
[2019-10-10] MEDS ORDERED: Carvedilol 25 MG TAB PO SCH (09:09)
--- NOTE | 2019-10-10 09:26 | PRG ---
DATE OF SERVICE: 10/10/2019 SUBJECTIVE: Mr. Borges looks short of breath. His respiratory rate is increased. He has been moved to the intermediate care unit. PHYSICAL EXAMINATION: VITAL SIGNS: His blood pressure is 113/70, pulse is 80 to 90, it is irregular. LUNGS: Clear, but his breaths are somewhat shallow. CARDIAC: Irregularly irregular. Heart sounds are distant. I do not hear a murmur. ABDOMEN: Obese. EXTREMITIES: Chronic venous stasis changes. Pulses, I feel faint femoral pulses, but I do not feel popliteal or posterior tibial pulses. I do not feel dorsalis pedis pulses. PERTINENT LABORATORY DATA: INR was 59.8 yesterday, creatinine is 5.7. Troponin 2 days ago was 0.439. The platelet count is still low at 80,000. ASSESSMENT: 1. Congestive heart failure, diastolic, still appears volume overloaded with pulmonary vascular congestion. 2. Aortic stenosis, moderate to severe. 3. Chronic atrial fibrillation. 4. Low platelet count. 5. Apparently he has sepsis. The blood cultures from the notes indicate that he had positive blood cultures from [facility]. 6. Renal failure. At this point, the prognosis is very guarded. He is not a candidate for any type of interventional cardiac therapy at this point. Prognosis as I discussed with the patient's daughter yesterday is guarded. Consideration for dialysis, although it is not really clear how well his blood pressure will tolerate this. Job ID: [id number]
--- NOTE | 2019-10-10 09:52 | PRG ---
DATE OF SERVICE: 10/10/2019 SERVICE: Renal Medicine. SUBJECTIVE: Mr. Borges is an 84-year-old white male with known history of chronic renal failure, who was initially admitted for shortness of breath. Initially, it was felt he might have CHF versus pneumonia. Chest x-ray showed no evidence of infiltrates or CHF. However, he still has persistent shortness of breath. He may have underlying cardiac ischemia. His renal function remains unimproved in spite of empiric volume repletion. He did receive albumin infusion and a bolus of normal saline yesterday. Chest x-ray again was done, which showed no evidence of CHF. Due to the unimproved renal function, we will initiate hemodialysis with this patient. Please note, I did review the urinalysis prior to admission, and it did show pigmented granular casts. I did discuss the dialysis with the patient and with his cousin. OBJECTIVE: VITAL SIGNS: Blood pressure is 122/70, heart rate is 69, respiratory rate 29, temperature 97. GENERAL: The patient is awake, in mild respiratory distress. SKIN: Adequate turgor. HEENT: Pinkish conjunctivae. Anicteric sclerae. NECK: No neck mass. No carotid bruits. No JVD. CHEST: No deformities. LUNGS: Decreased breath sounds. HEART: Normal sinus rhythm. No murmur. No gallops. No rubs. ABDOMEN: Globular, soft, and nontender. No masses. EXTREMITIES: No edema. No deformities. MEDICATIONS: Medications of October 10, 2019, were reviewed. LABORATORY DATA: Laboratories of October 10, 2019, showed white count 17.7, hemoglobin 12.9. Sodium 136, potassium 4, chloride 92, carbon dioxide 27, BUN 110, creatinine 5.7, GFR 10 mL/minute, glucose 112, calcium 7.6. BNP 629. ASSESSMENT AND PLAN: 1. Shortness of breath, multifactorial etiology. Possibility of underlying infection/pneumonia remains. On empiric IV antibiotics. He has also a possibility of congestive heart failure from diastolic dysfunction. Cardiac echo of interest showed a normal ejection fraction. 2. Acute kidney injury on top of his chronic renal failure - the patient most likely has superimposed acute tubular necrosis as suggested by urinary findings of pigmented granular casts. We will consult Surgery for placement of a cuffed hemodialysis catheter. His arteriovenous fistula is currently nonfunctional. We will start dialysis once the patient has a dialysis catheter. Overall prognosis remains guarded. Addendum: We were able to successfully cannulate his old AV fistula - hold cuffed hemodialysis catheter placement Job ID: [id number] MTDD
[2019-10-10] MEDS ORDERED: methylPREDNISolone Sod Succ 40 MG VIAL IVP SCH (10:30)
[2019-10-10 10:55] LABS: HBSAg Index 0.19 S/CO (0-0.99); Hep B Surf Ag Non-Reactive S/CO (NonReactive)
--- NOTE | 2019-10-10 11:16 | CON ---
DATE OF CONSULTATION: 10/10/2019 SERVICE: Pulmonary Medicine. REASON FOR CONSULTATION: [facility] patient. HISTORY OF PRESENT ILLNESS: The patient is an 84-year-old white male with past medical history significant for chronic kidney disease. He was in his usual state of health until about a btrfz-znj-p-half ago when he started having increasing dyspnea that limited his activity. Ultimately, this progressed to the point where he had a difficult time breathing. He started developing a little bit of a cough. He denies any fevers, chills, nausea and congestion in his chest. He presented to the emergency department on Tuesday, and was subsequently transitioned here in case he needed dialysis. Overnight, he was brought down to the [facility]. He was told that he had bilateral pneumonia originally. That being said, because he started getting a little bit more volume up, and was not making much urine, he developed increasing respiratory failure. He was placed on BiPAP, but he was tolerating it poorly. Otherwise, there were no events overnight. He has two word conversational dyspnea, looks a little bit uncomfortable with taking a deep breath. He is being considered for dialysis shortly. Otherwise, there has been no interval change to his condition. Nursing reports no overnight events. PAST MEDICAL HISTORY: 1. Chronic kidney disease with a remote history of being on dialysis for 2 to 3 years, but this was interrupted roughly 3 years ago. 2. Congestive heart failure. 3. Atrial fibrillation, chronic. 4. Gout. 5. Hypertension. PAST SURGICAL HISTORY: Unknown. SOCIAL HISTORY: The patient drinks 3 beers on a daily basis. He has extensive smoking history, but quit remotely. He denies any illicit drugs. 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 He lost his dog last Tuesday, and he reports that is the point at which everything kind of spiraled out of control. He indicates that he did not have excessive amounts of alcohol or any street drugs during this period of time. He has no exposure to chemicals, dust, asbestos, or tuberculosis that he is aware of. FAMILY HISTORY: Noncontributory. ALLERGIES: DILTIAZEM. MEDICATIONS: List of his inpatient medications were reviewed. No specific updates were made at this time. REVIEW OF SYSTEMS: General, head, ears, eyes, nose, throat, cardiovascular, respiratory, GI, , musculoskeletal, neurologic, and skin is negative except as mentioned in HPI. PHYSICAL EXAMINATION: VITAL SIGNS: Currently afebrile. No temperatures during the course of this hospital stay. Pulse 69, blood pressure 113/72, respirations 29, saturation 96% , currently on 2 L nasal cannula. GENERAL: The patient is awake and alert. He is in [id number] respiratory distress. He has 2 to 4 word conversational dyspnea. HEENT: Normocephalic and atraumatic. Sclerae white. Conjunctivae pink. Oral and nasal mucosa is moist without lesions. LUNGS: Decreased air entry. Rhonchi and wheezing are both present. No prolonged expiratory phase are appreciated. Dependently, minimal crackles are noted. HEART: Normal rate, regular. ABDOMEN: Soft, nontender, and nondistended. Bowel sounds are positive. MUSCULOSKELETAL: No cyanosis or clubbing. There is trace pitting in the right lower extremity. No significant pitting in the left lower extremity. Chronic stasis dermatitis changes are present. It is a little bit worse with a touch of erythema on the right. He has 2+ edema at the sacrum. : Swain catheter in place. NEUROLOGIC: Grossly nonfocal though he does demonstrate diffuse asterixis. LABORATORY DATA: WBC 17.7, hemoglobin 12.9, platelets 80,000 and downtrending. Band count is improving to 15% on top of 75% neutrophils. PTT 60. PH 7.26, pCO2 of 63, PO2 of 104. Creatinine 5.71, BUN 110 and uptrending, anion gap 21, chloride 92. Calcium 7.6. BNP 629, troponin 0.0439. TSH falls within the normal limits. Procalcitonin is quite elevated. PTH is elevated. Liver function studies are significant for an elevated AST compared to the ALT. Bilirubin 1.6. Vancomycin 19.6. IMAGING: Echocardiogram demonstrates an ejection fraction of 50% to 60%, underlying atrial fibrillation. Left atrium is severely dilated. Severe aortic stenosis is present without significant aortic regurgitation. Chest x-ray demonstrates cardiomegaly. If there is infiltrate in the lung, I cannot see it because it is completely obscured by his large cardiac silhouette. Soft tissue attenuation is present. This is an underpenetrated film. ASSESSMENT: 1. Acute hypoxic and hypercapnic respiratory failure. 2. Chronic obstructive pulmonary disease with acute exacerbation. 3. Acute kidney injury on chronic kidney disease 4, possibly progressing to end-stage renal disease. 4. Right shoulder pain. 5. A non-ST elevation myocardial infarction. 6. Elevated AST/bilirubin. 7. Severe sepsis. 8. Atrial fibrillation, permanent. 9. Severe aortic stenosis. 10. Metabolic encephalopathy. DISCUSSION AND PLAN: We will continue his empiric antibiotics. He seems to be clearing his inflammatory profile. Our source is currently unknown. I will treat him with scheduled nebulized medications, brief course of steroids to round out our bronchitis therapy. Liver function studies will be trended tomorrow. I will get an x-ray of that right shoulder. If I do not have clear-cut evidence of a source by tomorrow, CT of the chest may be considered. He is tolerating BiPAP poorly. If dialysis does improve his respiratory status, he will likely be intubated before the end of the day. 70 minutes have been devoted to this patient in various activities. I personally reviewed all imaging studies and laboratory data noted within this document. For fifty percent of this time, I was interacting with the patient at the bedside or coordinating care with the care team. For the remainder of the time I was immediately available to the patient in the hospital unit. Job ID: [id number] MTDD
--- NOTE | 2019-10-10 11:50 | RAD ---
3 VIEWS RIGHT SHOULDER: Date: 10/10/2019 COMPARISON: None. HISTORY: Right shoulder pain. FINDINGS: Three views of right shoulder show no evidence of acute fracture or dislocation. No soft tissue swell ing is seen. No degenerative changes are present. IMPRESSION: No evidence of acute osseous abnormality. POS: [facility]
[2019-10-10] MEDS: Carvedilol 6.25 MG TAB PO SCH ×2 (13:09→21:35)
[2019-10-10] MEDS: Enoxaparin Sodium 30 MG/0.3 ML SYRINGE SC SCH (13:10)
--- NOTE | 2019-10-10 13:43 | CON ---
DATE OF CONSULTATION: HISTORY OF PRESENT ILLNESS: Vikram Borges is an 84-year-old male patient admitted under MR number [id number] this admission as a new patient, but has had previous admissions under a different MR number [id number]. This will need to be consolidated. The patient is admitted by Dr. Branch for dyspnea. In 2014, Dr. Shepherd placed a cuffed tunneled dialysis catheter. On March 07, 2015, I assumed his care and removed his dialysis catheter and placed a longer catheter because of malfunction. On 04/04/2015, I placed a left arm fistula, Kinsey type calibrated to 3.5 mm dilator. Apparently, the patient enjoyed renal recovery and did not ever access this fistula. At that time, echocardiogram in February 2015, read by Dr. Condon revealed normal LV function and size 55% to 60% EF. No significant valvular dysfunction noted. The patient admitted this hospitalization due to dyspnea, orthopnea. He needs dialysis access. I have been asked to see him regarding placement of dialysis catheter, but he states he cannot lie flat without getting short of breath, whereas previously he could. For this reason, a temporary catheter was contemplated until it was appreciated he had a functioning left fistula. On evaluation, I feel this can be accessed and may we can avoid a Catheter Dialysis team or try to access him, if they cannot, I will place a cuffed tunneled dialysis catheter. Ultrasound vein mapping on the right after IV access and there was noted to be a thrombus in this antecubital vein. Coumadin was held. A fistula was applied. More recent echocardiogram in September 2019, 55% to 60% EF in large atrium. The patient was admitted by [facility], transferred from [place] for dyspnea. [place]. He has an IV in his proximal forearm AC area. He has been seen by Dr. Branch, Dr. Rahman, and Dr. Flanagan in this hospitalization. As noted above, the patient was on dialysis in 2014, but enjoyed renal recovery and now has worsening renal function from hypertensive nephropathy. History of saphenous vein ablations. The patient is a , lives alone. ALLERGIES: DILTIAZEM. PAST MEDICAL HISTORY: Atrial fibrillation, hypertension, gout, chronic venous stasis disease of the lower extremities. PAST SURGICAL HISTORY: Umbilical hernia repair, 2 dialysis catheters placed in 2014 before the fistula was placed. [place] , and Tuesday on occasion. CURRENT MEDICATIONS: Include, 1. Clonidine 0.1 mg a day. 2. Furosemide 40 mg a day. 3. Carvedilol 25 mg b.i.d. 4. Allopurinol 100 mg daily. REVIEW OF SYSTEMS: Ten-point noncontributory. PHYSICAL EXAMINATION: VITAL SIGNS: 6 foot 2 inches, 293 pounds, 37 BMI. GENERAL: The patient is dyspneic, labored respirations. He cannot lie flat for orthopnea. LUNGS: Clear to auscultation. Few rhonchi base. No wheezing. CARDIAC: Regular rate and rhythm. ABDOMEN: Obese, soft. No hernias. EXTREMITIES: Severe venous stasis in both lower extremities with hyperpigmentation and scaly skin. Ankle edema. LABORATORY DATA: White count 17, hemoglobin 12 last night. Sodium 136, potassium 4.0, GFR 10, creatinine 5.71, BUN 110. ASSESSMENT AND PLAN: 1. End-stage renal disease. Functioning fistula in his left wrist. He has a fistula, good thrill and bruit. I can palpate this up to his antecubital area. I think this can be accessed, and I have asked Dialysis to try to access it before placing the catheter, they believe that they can. 2. Obesity. 3. Chronic kidney disease, now end-stage renal disease, in the need of urgent dialysis. 4. If he needs hemodialysis catheter, we will place one. Avoid IV access above his wrist in his right arm and none at all on his left. If he needs IV access, nurse has been instructed to call me. Job ID: [id number]
[2019-10-10] MEDS: Carvedilol 25 MG TAB PO SCH (15:04)
[2019-10-11 04:16] LABS: Vancomycin, Trough 22.2 ug/mL
[2019-10-11 04:18] LABS: ALT (SGPT) 36 U/L (8-55); AST (SGOT) 40 U/L (5-34); Albumin 3.6 g/dL (3.4-4.8); Alkaline Phosphatase 63 U/L (40-110); Anion Gap 21 mmol/L (10-20); BUN (Urea Nitrogen) 115 mg/dL (8.4-25.7); Bilirubin, Total 1.4 mg/dL (0.2-1.2); CRP (Inflammatory) 29.65 mg/dL (= or < 0.5); Calc. Creatinine Clearance 22 mL/min (70-130); Carbon Dioxide 27 mmol/L (23-31); Chloride 93 mmol/L (98-107); Estimated GFR-MDRD 12; Glucose 117 mg/dL (83-110); Magnesium 2.4 mg/dL (1.6-2.6); Phosphorus 6.5 mg/dL (2.3-4.7); Potassium 4.4 mmol/L (3.5-5.1); Protein, Total 7.7 g/dL (5.8-8.1); Sodium 137 mmol/L (136-145)
[2019-10-11] MEDS ORDERED: Vancomycin HCl 1.25 GM in Sodium Chloride 0.9% 250 ML 250 ML IVPB SCH (04:30)
[2019-10-11] MEDS ORDERED: Vancomycin 1 GM in Premix Bag 1 BAG IVPB SCH (04:30)
[2019-10-11] MEDS ORDERED: HOLD VANCOMYCIN FOR LEVEL >20 FS SCH (04:30)
[2019-10-11] MEDS ORDERED: Vancomycin HCl 1.5 GM in Sodium Chloride 0.9% 250 ML 300 ML IVPB SCH (04:30)
[2019-10-11] MEDS ORDERED: Vancomycin HCl 750 MG in Sodium Chloride 0.9% 250 ML 250 ML IVPB SCH (04:30)
[2019-10-11 04:41] LABS: Band 4 % (5-11); Hemoglobin 13.4 g/dL (14.0-18.0); Hypochromia SLIGHT = 6-15 cells (100X) (0-5/hpf); Lymphocytes 3 % (21-51); MDiff Complete? YES; Mean Corpuscular HGB CONC 32.4 g/dL (32.0-36.0); Mean Corpuscular Hemoglobin 31.3 pg (27.0-31.0); Mean Corpuscular Volume 96.6 fL (78.0-98.0); Mean Platelet Volume 9.4 fL (7.4-10.4); Monocytes 12 % (0-10); Neutrophil 81 % (42-75); Platelet Count 76 thou/uL (130-400); Platelet Morphology Comment Appears Decreased; RBC Distribution Width 13.4 % (11.5-14.5); Red Blood Cell (RBC) Count 4.28 mill/uL (4.70-6.10); White Blood Cell (WBC) Count 8.7 thou/uL (4.8-10.8)
[2019-10-11] MEDS: Carvedilol 6.25 MG TAB PO SCH ×2 (08:42→21:34)
[2019-10-11] MEDS: Enoxaparin Sodium 30 MG/0.3 ML SYRINGE SC SCH (08:44)
[2019-10-11] MEDS: methylPREDNISolone Sod Succ 40 MG VIAL IVP SCH (08:51)
[2019-10-11] MEDS ORDERED: Tuberculin PPD 0.1 ML VIAL I-DERMAL SCH (09:00)
--- NOTE | 2019-10-11 09:06 | PRG ---
DATE OF SERVICE: 10/11/2019 SUBJECTIVE: Mr. Borges looks much better today. He is sitting up in the bedside. He does not look nearly short of breath as he did yesterday. OBJECTIVE: VITAL SIGNS: Blood pressure is 120/60, pulse is in the 80s, dramatically reduced the Coreg dose. LUNGS: Clear. CARDIAC: Irregular, but the heart sounds are distant. ABDOMEN: Obese, nontender. EXTREMITIES: Moderate edema. PERTINENT LABORATORY DATA: His WBC is down to 8.7, platelet count still low at 76,000. The patient did undergo dialysis yesterday, I think that really helped. His creatinine is down to 4.64. ASSESSMENT: 1. Atrial fibrillation, long-standing, persistent in all likelihood. 2. Congestive heart failure, diastolic, still somewhat volume overloaded, but better. 3. Sepsis type syndrome. Apparently, he did have positive blood cultures from [place], those are not in the computer for an outside institution. 4. Renal failure, status post one episode of dialysis. 5. Aortic stenosis, moderate to severe. PLAN: 1. Coreg dose is reduced. 2. He still on antibiotics. I will give him a single dose of diuretic later today. 3. Prognosis remains guarded. Not a candidate for transcutaneous aortic valve replacement any time soon or any type of aortic valve replacement with recent sepsis. Long-term prognosis guarded. Short term looks better. Job ID: [id number]
--- NOTE | 2019-10-11 09:14 | PRG ---
DATE OF SERVICE: 10/11/2019 SUBJECTIVE: Mr. Borges is an 84-year-old white male with chronic renal failure/acute kidney injury. Due to the progressive azotemia and shortness of breath/volume overload, he was initiated on dialysis. We removed about 1 L of fluid yesterday. This morning, he is feeling better. He has also been empirically treated for his presumptive infection-on IV antibiotics. This morning, he voices no new complaints. His memory is somewhat impaired, could not remember the last 24 hours. He could not remember that he was dialyzed yesterday. Our plan is to do another 2-hour hemodialysis with this patient. No other complaints. OBJECTIVE: VITAL SIGNS: Blood pressure is 120/60, heart rate 89, respiratory rate 17, O2 saturation 100%, and temperature 97.7. GENERAL: The patient is awake, alert, sitting comfortable, not in distress. SKIN: Adequate turgor. HEENT: He has pinkish conjunctivae. Anicteric sclerae. NECK: No neck mass. No carotid bruits. No JVD. CHEST: No deformities. LUNGS: Clear breath sounds. No wheezing. No crackles. HEART: Normal sinus rhythm. No murmur. No gallops or rubs. ABDOMEN: Globular, soft, and nontender. No masses. EXTREMITIES: Positive for edema. MEDICATIONS: Medications of October 11, 2019, was reviewed. LABORATORY DATA: Laboratories of October 11, 2019; white count 8.7 and hemoglobin 13.4. Sodium 137, potassium 4.4, chloride 93, carbon dioxide 27, BUN 115, creatinine 4.64, calcium 8, magnesium 2.4, AST 40, and ALT 36. BNP 629.3. C-reactive protein is 29.6. ASSESSMENT AND PLAN: 1. Acute kidney injury/chronic renal failure-the patient has been initiated on dialysis due to the progressive azotemia. He is scheduled for 2-hour hemodialysis with fluid removal as tolerated. We will then do daily dialysis with increasing number of hours until we reach 4 hours, then we will place him on three times a day dialysis schedule. Consider outpatient dialysis placement. 2. Sepsis, clinically much improved. White count has gone down. Currently, on IV antibiotics. 3. Valvular heart disease/congestive heart failure. The patient is followed up by his lead handler. Recheck basic metabolic panel and CBC in a.m. Job ID: [id number]
[2019-10-11 09:40] LABS: HBSAB Concentration 1.05 mIU/mL; HBSAg Index 0.26 S/CO (0-0.99); Hep B Core Total Ab Non-Reactive (NonReactive); Hep B Core Total Index 0.09 S/CO (0-0.79); Hep B Surf AB Non-Reactive (NonReactive); Hep B Surf Ag Non-Reactive S/CO (NonReactive); Hep C IgG Ab Non-Reactive (NonReactive); Hep C Index 0.14 S/CO (0-0.79)
--- NOTE | 2019-10-11 10:35 | PRG ---
DATE OF SERVICE: 10/11/2019 SERVICE: Pulmonary Medicine. INTERVAL HISTORY: The patient's breathing has improved dramatically. He denies any current chest discomfort, nausea, or vomiting. He had no fevers or overnight events. He slept very comfortably. He is wearing BiPAP and he has had some breakdown on his nose. Otherwise, there were no events. PHYSICAL EXAMINATION: VITAL SIGNS: Pulse 81, blood pressure 120/60, respirations 28, saturation 93%, currently on 2 L nasal cannula. GENERAL: The patient is awake and alert, in no apparent distress. LUNGS: Very good air entry. Dependent crackles are still present. Rhonchi have improved significantly. No prolonged expiratory phase or wheezing appreciated today. HEART: Normal rate, regular. ABDOMEN: Soft, nontender, nondistended. Bowel sounds are positive. MUSCULOSKELETAL: No cyanosis or clubbing. There is 1 to 2+ pitting in the bilateral lower extremities with chronic stasis changes. NEUROLOGIC: Grossly nonfocal. LABORATORY DATA: WBC 8.7, hemoglobin 13.4, platelets 76,000 and gently downtrending. Band count has dramatically improved 4% on top of 81% neutrophils. ESR 124. CRP 29. Albumin 3.7, total protein 7.7. Total bilirubin is gently downtrending. AST has significantly improved. Phosphorus 6.5, creatinine 4.64. BUN 115. Basic metabolic profile is otherwise unremarkable. IMAGING: Shoulder x-ray demonstrates no acute osseous abnormality of the right shoulder. ASSESSMENT: 1. Acute hypoxic and hypercapnic respiratory failure, improving. 2. Chronic obstructive pulmonary disease with acute exacerbation. 3. Acute kidney injury on chronic kidney disease, possibly progressing to end-stage renal disease. 4. Right shoulder pain. 5. [id number] myocardial infarction secondary to demand. 6. Severe sepsis. 7. Atrial fibrillation, permanent. 8. Severe aortic stenosis. 9. Metabolic encephalopathy, resolved. DISCUSSION AND PLAN: The patient will continue his empiric antibiotics. He is clearing his inflammatory profile very nicely. We will need to continue to dialyze him so that he gets closer to euvolemia. At this point, he is stable for transition to the floor. Critical Care will follow for the time being. Job ID: [id number]
[2019-10-11] MEDS: Acetaminophen 325 MG TAB PO PRN (12:38)
--- NOTE | 2019-10-11 12:56 | PDOC.FM ---
- Subjective Subjective: Mr. Borges was sitting up at side of the bed eating breakfast. He was on 3L satting well, has been on and off bipap. He says his breathing has improved but still has some difficulty breathing. - Objective MAR Reviewed: Yes Vital Signs & Weight: Vital Signs (12 hours) Temp Pulse Resp BP Pulse Ox 10/11/19 11:15 97.0 F L 10/11/19 08:42 120/60 10/11/19 08:00 97 10/11/19 07:29 97.7 F 10/11/19 07:06 89 17 10/11/19 03:39 97.8 F Weight Weight 133.084 kg Most Recent Monitor Data Heart Rate from ECG 73 NIBP 151/93 NIBP BP-Mean 112 Respiration from ECG 23 SpO2 97 I&O: 10/10/19 10/11/19 10/12/19 06:59 06:59 06:59 Intake Total 1540 720 Output Total 650 1150 Balance 890 -430 Result Diagrams: 10/11/19 03:42 10/11/19 03:42 Phys Exam - Physical Examination Constitutional: NAD Respiratory: no wheezing, no rhonchi, clear to auscultation bilateral Cardiovascular: RRR, no significant murmur Gastrointestinal: soft, non-tender 2+ pitting edema RLE, chronic changes Neurological: moves all 4 limbs Psychiatric: normal affect Skin: normal turgor Dx/Plan (1) CAP (community acquired pneumonia) Code(s): J18.9 - PNEUMONIA, UNSPECIFIED ORGANISM Status: Acute (2) Atrial fibrillation Code(s): I48.91 - UNSPECIFIED ATRIAL FIBRILLATION Status: Acute (3) Congestive heart failure Code(s): I50.9 - HEART FAILURE, UNSPECIFIED Status: Acute (4) Gout Code(s): M10.9 - GOUT, UNSPECIFIED Status: Acute (5) HTN (hypertension) Code(s): I10 - ESSENTIAL (PRIMARY) HYPERTENSION Status: Acute (6) NSTEMI (non-ST elevated myocardial infarction) Code(s): I21.4 - NON-ST ELEVATION (NSTEMI) MYOCARDIAL INFARCTION Status: Acute - Plan Plan: Acute hypoxic hypercapneic respiratory failure 2/2 presumed Bacterial pneumonia , improving - Lactic acidosis of 3.6, WBC 23 with 21%bands, Procal 64, WBC now downtrending - Continue empiric treatment with Vancomycin and Cefepime - official blood cx report pending, prelim gram variable bacilli 2/2, on and off bipap, respiratory status improved - Pulm consulted CHF diastolic, concern for exacerbation - ECHO- diastolic CHF, mod/severe aortic stenosis - Continue home coreg coreg - Cardiology consulted, gave another dose of lasix VALERIE on CKD vs ESRD - He has a history of renal disease requiring dialysis in past - Appreciate recommendations from Dr. Branch - Plan for continued dialysis treatments Atrial fibrillation, chronic - appreciate cardiology recs. Has been rate controlled - was not on therapeutic anticoagulation at home, patient seemed unaware of this. Chadsvasc score 4, high risk with 4.8% stroke. Hasbled score 2, moderate bleeding risk, 4.1%. 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 He seems to be significant fall risk. Thrombocytopenia - decreased from 120 on admission to 80. Heparin going for 2 days. Will continue to monitor. - discussed with clinical pharmacist. Recommended lovenox for ppx or therapeutic at this time. May check anti-10a levels. NSTEMI 2/2 demand - Troponin 0.465 > 0.532, downtrended - Was on heparin gtt, discontinued 10/08 Mod/Severe aortic stenosis R shoulder pain - present since admission, XR negative - tramadol, tylenol prn HTN - Normotensive. Will continue coreg per cardiology Dispo: transfer to tele, pending blood cultures Code: Full PCP: Julissa Savage Addendum - Attending - Attending Attestation Date/Time: 10/11/19 5933 I personally evaluated the patient and discussed the management with Dr. Lux I agree with the History, Examination, Assessment and Plan documented above with any addition or exceptions noted below - Patient feeling much better; off Biapp; sitting on edge of bed. Afebrile VSS. A/P: 1) Volume overload secondary to ESRD- started on HD yesterday; continue current meds 2) ESRD- plans as per nephrology for HD 3) Pneumonia- continue current antibiotics
[2019-10-11] MEDS ORDERED: Furosemide 20 MG/2 ML VIAL SLOW IVP SCH (14:00)
--- NOTE | 2019-10-11 14:26 | PQF ---
BAUTISTA VIEYRA,Jacqueline Cortés *r [id number] [facility]- B08 [id number] CLINICAL DOCUMENTATION IMPROVEMENT CLARIFICATION FORM: ICD-10 Updated PLEASE DO AN ADDENDUM TO THE PROGRESS NOTE WITH ANY DOCUMENTATION UPDATES OR ADDITIONS AND CARRY THROUGH TO DC SUMMARY. THANK YOU. DATE: 10/11/2019 ATTN: Dr. Lux Please exercise your independent, professional judgment in responding to the clarification form. Clinical indicators are provided on the bottom of this form for your review Please check appropriate box(es): [ x ] Severe sepsis due to Pneumonia with acute organ dysfunction of: [ x ] Acute respiratory Failure [ x ] VALERIE [ ] Sepsis due to Pneumonia without acute organ dysfunction [ ] SIRS due to non-infectious process (please specify etiology): [ ] COPD [ ] Other (please specify): with acute organ dysfunction of : [ ] Acute respiratory Failure [ ] VALERIE [ ] SIRS due to non-infectious process without end organ dysfunction (please specify etiology): [ ] COPD [ ] Other (please specify): [ ] Pneumonia without sepsis [ ] Other diagnosis [ ] Unable to determine In addition, please specify: Present on Admission (POA): [ x ] Yes [ ] No [ ] Unable to determine For continuity of documentation, please document condition throughout progress notes and discharge summary. Thank You. CLINICAL INDICATORS - SIGNS / SYMPTOMS / LABS / RESULTS AND LOCATION IN * LABS: 10/07-10/10 WBC 8.7 - 20.4 * ED 10/07: Vitals: Pulse 89-100 Pulse Oximetry: 98-99% 3L O2 NC * H&P 10/07 (Ezequiel): - Lab results: From [facility]: ... Lactic Acid 3.6 .... WBC 23.73 .... 21% bands, 58% neutrophils - VALERIE on CKD vs ESRD * PN 10/08 (Jose J): Prelim gram variable bacilli blood cultures positive 08/19 * PN 10/09 (Jose J): Acute hypoxic hypercapneic respiratory failure 2/2 presumed Bacterial pneumonia ... started BiPAP. ABG worsened this am ... * Consult 10/09 (Panchito): Assessment: - Acute hypoxic and hypercapnic respiratory failure. - COPD with acute exacerbation - Severe Sepsis - Metabolic encephalopathy * PN 10/10 (Branch): Sepsis, clinically much improved. White count has gone down. Currently on IV antibiotics. RISK FACTORS / RESULTS AND LOCATION IN MR * H&P 10/07 (Croft): 84 y/o M ... Bacterial pneumonia, presumed. TREATMENTS / RESULTS AND LOCATION IN MR * Blood cultures x2 (outside facility) * H&P 10/07 (Croft): Will empirically treat with Vancomycin and Cefepime ... Repeat CBC in the am. * Daily CBC: 10/07 -10/10 * Event Note 10/08 (Cro[facility]): ... Stat ABG ... Transfer to IMCU ... BiPAP Thank you, Jyoti (This form is maintained as a part of the permanent medical record) 2015 [employer] All Rights Reserved Jyoti Ramachandran RN, CDS [email or web address] cell phone: [phone] [facility]
--- NOTE | 2019-10-11 19:43 | CON ---
DATE OF CONSULTATION: 10/11/2019 REASON FOR CONSULTATION: Bacteremia. HISTORY OF PRESENT ILLNESS: An 84-year-old, who has a history of ischemic cardiomyopathy with prior KS, chronic atrial fibrillation, gout, hypertension, and was admitted with dyspnea, which has been worsening for the previous weeks before admission. He also noticed swelling of the lower extremity, particularly the right side. He denied any fever. He denied any headaches. No diarrhea or genitourinary symptoms. He voids without difficulty. On arrival, his temperature 98.9, blood pressure 120/50, pulse 89, and O2 saturation 99. There is evidence of jugular vein distention, mild respiratory distress with diminished breath sounds. Heart rate was irregular. Other findings on arrival include a white cell count elevation of 17.1, hemoglobin 14, platelets 115,000 with 37% bands and creatinine was elevated at 5.48. His bilirubin is 1.4, direct 1.0, AST 40, alkaline phosphatase 63, CRP 29, and albumin 3.6. Two specimens which were drawn, I believe in [place] were positive for Pasteurella multocida at least one set was positive for pasteurella. Currently, Mr. Borges is in the [facility]. He is awake, little bit difficult to understand his replies because of his speech is somewhat garbled, but he does make sense and little bit disoriented. He establishes eye contact and follows commands. He denied any headaches. He has mild dyspnea and at the moment, cough is less. No abdominal pain. He did have quite a bit of tenderness in the lower extremities as noted below, particularly on the right side. PAST MEDICAL HISTORY: Includes ischemic cardiomyopathy; chronic renal insufficiency stage IV and had been on dialysis, but has not been on dialysis for the past year and a half; chronic atrial fibrillation; gout; and hypertension. SURGICAL HISTORY: Dialysis access placement. FAMILY HISTORY: Noncontributory. SOCIAL HISTORY: Former smoker, drinks daily. CURRENT MEDICATIONS: 1. Tylenol. 2. DuoNeb. 3. Coreg. 4. Cefepime. 5. Enoxaparin. 6. Methylprednisolone. 7. Zofran. 8. Senokot. 9. Vancomycin. PHYSICAL EXAMINATION: VITAL SIGNS: T-max 98.6, blood pressure 150/80, pulse 93, respirations 19 to 20, and O2 saturation 93% to 98%. SKIN: Lower extremity on the right side is erythematous. There is evidence of lipodermatosclerosis and few areas that could represent tophaceous gout in the skin. The left leg is not as swollen and is not erythematous. There is marked tenderness on palpation of the right leg all the way to the thigh. The joints do not seem to be involved by any inflammatory process. No lymphadenopathy. Ocular movements are conjugate. There is evidence of blepharitis. Oral cavity with numerous missing teeth. Oral cavity otherwise is somewhat dry. NECK: Supple. Jugular venous distention. LUNGS: Symmetric air entry. HEART: S1 and S2. Regular rate. Faint basilar crackles. No wheezing. ABDOMEN: Protuberant with no tenderness. No organomegaly. No ascites. No bladder distention. The patient is voiding with an indwelling Swain catheter. EXTREMITIES: Pulses are diminished in the dorsalis pedis, but the edema prevents us from getting a full assessment. Popliteals are 1+. NEUROLOGIC: He is awake, establishes eye contact, is a bit disoriented. Initially told me he felt he was at home, realized he was in the hospital later on, but could not tell me the date. He did follow commands though. He is able to move all extremities, but is diffusely weak. LABORATORY DATA: White cell count is 8.7, hemoglobin 13.4, and platelets 76. Creatinine 4.64. Hepatitis serology negative. No cultures were submitted from this admission here in the hospital. There is a shoulder x-ray with no evidence of acute osseous abnormality. ASSESSMENT: 1. Ischemic cardiomyopathy. 2. Chronic kidney disease stage 4 to 5. 3. 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 DISCUSSION: The most likely scenario here is a Pasteurella multocida bacteremia secondary to cellulitis, probably resulting from contact with his dog. He has a dog and he takes care of the animal. Dogs are frequently colonized by pasteurella. Pasteurella multocida is a zoonotic infection usually from cats or dogs and typically with the lower extremity inflammatory process resulting sometimes in bacteremia. Is typically susceptible to various antimicrobials geared towards gram-negative rods including third generation cephalosporins to quinolones, Unasyn, and so on so forth. We will switch him to Rocephin and eventually transition to oral Augmentin for discharge planning or something similar or quinolone. Job ID: [id number]
[2019-10-11] MEDS: cefTRIAXone\\ROCEPHIN 2 GM in Sodium Chloride 0.9% 100 ML IVPB SCH (21:33)
[2019-10-12 04:02] LABS: Phosphorus 6.3 mg/dL (2.3-4.7)
[2019-10-12 04:05] LABS: Anion Gap 21 mmol/L (10-20); BUN (Urea Nitrogen) 103 mg/dL (8.4-25.7); Calc. Creatinine Clearance 24 mL/min (70-130); Calcium 8.2 mg/dL (7.8-10.44); Carbon Dioxide 25 mmol/L (23-31); Chloride 96 mmol/L (98-107); Estimated GFR-MDRD 15; Glucose 141 mg/dL (83-110); Magnesium 2.7 mg/dL (1.6-2.6); Potassium 4.2 mmol/L (3.5-5.1); Sodium 138 mmol/L (136-145)
[2019-10-12 04:49] LABS: Band 8 % (5-11); Hemoglobin 13.8 g/dL (14.0-18.0); Lymphocytes 8 % (21-51); MDiff Complete? YES; Mean Corpuscular HGB CONC 32.2 g/dL (32.0-36.0); Mean Corpuscular Hemoglobin 31.1 pg (27.0-31.0); Mean Corpuscular Volume 96.8 fL (78.0-98.0); Monocytes 13 % (0-10); Myelocyte 1 % (0-0); Neutrophil 70 % (42-75); Platelet Count 100 thou/uL (130-400); Platelet Morphology Comment Appears Decreased; RBC Distribution Width 13.4 % (11.5-14.5); Red Blood Cell (RBC) Count 4.42 mill/uL (4.70-6.10); White Blood Cell (WBC) Count 9.7 thou/uL (4.8-10.8)
--- NOTE | 2019-10-12 06:27 | PDOC.FM ---
- Subjective Subjective: Mr. Borges was sitting up in bed this morning. He reports feeling sleepy. He was on bipap 2 hours last night and has otherwise been on NC. Had 2 hrs dialysis yesterday. - Objective Vital Signs & Weight: Vital Signs (12 hours) Temp Pulse Resp BP Pulse Ox 10/12/19 03:27 98.4 F 10/11/19 23:27 97.5 F L 10/11/19 23:22 76 19 100 10/11/19 21:34 151/95 H 10/11/19 20:00 97 10/11/19 19:52 97.4 F L 10/11/19 18:52 82 20 96 Weight Weight 126.734 kg Most Recent Monitor Data Heart Rate from ECG 67 NIBP 159/87 NIBP BP-Mean 111 Respiration from ECG 18 SpO2 100 I&O: 10/10/19 10/11/19 10/12/19 06:59 06:59 06:59 Intake Total 1962 627 9205 Output Total 650 1150 1125 Balance 890 -430 775 Result Diagrams: 10/12/19 03:31 10/12/19 03:31 Phys Exam - Physical Examination Respiratory: no wheezing, clear to auscultation bilateral Cardiovascular: RRR, no significant murmur Gastrointestinal: non-tender, positive bowel sounds RLE edema 2+, erythema extending up to R thigh Neurological: moves all 4 limbs (CN intact, oriented to person, thinks he is in [place]) Skin: cap refill <2 seconds Dx/Plan (1) CAP (community acquired pneumonia) Code(s): J18.9 - PNEUMONIA, UNSPECIFIED ORGANISM Status: Acute (2) Atrial fibrillation Code(s): I48.91 - UNSPECIFIED ATRIAL FIBRILLATION Status: Acute (3) Congestive heart failure Code(s): I50.9 - HEART FAILURE, UNSPECIFIED Status: Acute (4) Gout Code(s): M10.9 - GOUT, UNSPECIFIED Status: Acute (5) HTN (hypertension) Code(s): I10 - ESSENTIAL (PRIMARY) HYPERTENSION Status: Acute (6) NSTEMI (non-ST elevated myocardial infarction) Code(s): I21.4 - NON-ST ELEVATION (NSTEMI) MYOCARDIAL INFARCTION Status: Acute - Plan Plan: Pasteurella bacteremia - Abx switched to rocephin per Dr. Wen - Cellulitis of RLE is presumed source. Patient denied having a dog yesterday morning. History is a bit confusing. Niece said he used to have a dog but the dog . Unsure of the timing on this. Acute hypoxic hypercapneic respiratory failure, improving - Lactic acidosis of 3.6, WBC 23 with 21%bands, Procal 64, WBC now downtrending - Empiric abx discontinued. Bipap required intermittently. Duonebs do not seem to improve symptoms and no wheezing present on exam. - Pulm consulted CHF diastolic, concern for exacerbation - ECHO- diastolic CHF, mod/severe aortic stenosis - Continue coreg - Cardiology consulted, Dr. Rahman VALERIE on CKD vs ESRD - He has a history of renal disease requiring dialysis in past - Appreciate recommendations from Dr. Branch - Plan for continued dialysis treatments with plan for outpatient dialysis Atrial fibrillation, chronic - appreciate cardiology recs. Has been rate controlled - was not on therapeutic anticoagulation at home, patient seemed unaware of this. Chadsvasc score 4, high risk with 4.8% stroke. Hasbled score 2, moderate bleeding risk, 4.1%. 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 He seems to be significant fall risk. Thrombocytopenia, improving - decreased from 120 on admission to 80. Heparin going for 2 days. Will continue to monitor. - Lovenox NSTEMI 2/2 demand - Troponin 0.465 > 0.532, downtrended - Was on heparin gtt, discontinued 10/08 Mod/Severe aortic stenosis R shoulder pain - present since admission, XR negative - tramadol, tylenol prn HTN - Normotensive. Will continue coreg per cardiology Dispo: continue current management, HD gradually increasing, respiratory status improving, being treated for bacteremia Code: Full PCP: Julissa Savage Addendum - Attending - Attending Attestation Date/Time: 10/12/19 8339 I personally evaluated the patient and discussed the management with Dr. Lux I agree with the History, Examination, Assessment and Plan documented above with any addition or exceptions noted below - Patient sleepy this morning. Was awake and ate his breakfast earlier per nurse. Needed BiPap last night for short time. Afebrile VSS. A/P: 1) Acute hypoxic resp failure- improved; continue to improve. 2) Pasturella cellulitis with bacteremia- continue current abx. Appreciate assistance from ID. 3) ESRD- cotninue HD as per nephrology.
[2019-10-12] MEDS ORDERED: Furosemide 20 MG/2 ML VIAL SLOW IVP SCH (07:00)
[2019-10-12] MEDS: Carvedilol 6.25 MG TAB PO SCH ×2 (08:00→22:58)
[2019-10-12] MEDS: methylPREDNISolone Sod Succ 40 MG VIAL IVP SCH (08:00)
[2019-10-12] MEDS ORDERED: Heparin 10,000 UNITS/ 10 ML VIAL ONE (08:34)
[2019-10-12] MEDS ORDERED: Enoxaparin Sodium 30 MG/0.3 ML SYRINGE SC SCH (09:00)
[2019-10-12] MEDS ORDERED: Heparin 5,000 UNITS/ML VIAL SC SCH ×2 (09:00→23:45)
--- NOTE | 2019-10-12 09:16 | PRG ---
DATE OF SERVICE: 10/12/2019 SERVICE: Renal Medicine. SUBJECTIVE: Mr. Borges is an 84-year-old white male, followed up by the Renal Service for his acute kidney injury on top of his chronic renal failure. He has been initiated on hemodialysis due to volume overload and progressive azotemia. He received 2 hours of hemodialysis yesterday with fluid removal. Our plan is to do a 3-hour hemodialysis today and tomorrow for our dialysis. He is feeling a little better. No new complaints. OBJECTIVE: VITAL SIGNS: Blood pressure is 159/87 with heart rate of 67, respiratory rate 18, pulse ox 99%, temperature 97.6. GENERAL: The patient is awake, supine, comfortable, not in overt distress. Please note, the patient is obese. SKIN: Adequate turgor. HEENT: He has pinkish conjunctivae. Anicteric sclerae. NECK: No neck mass. No carotid bruits. No JVD. CHEST: No deformities. LUNGS: Decreased breath sounds. HEART: Normal sinus rhythm. No murmur. No gallops. No rubs. ABDOMEN: Globular, soft, nontender. No masses. EXTREMITIES: Positive for edema. MEDICATIONS: Medications of October 12, 2019, were reviewed. LABORATORY DATA: Laboratories of October 12, 2019; white count 9.7, hemoglobin 13.8. Sodium 138, potassium 4.2, chloride 96, carbon dioxide 25, BUN 103, creatinine 3.79, magnesium 2.7. ASSESSMENT AND PLAN: 1. Acute kidney injury/chronic renal failure - due to volume overload and progressive azotemia. He has been initiated on dialysis. We are doing daily hemodialysis with this patient. We will try to max out fluid removal only as tolerated by the patient. 2. Shortness of breath, clinically much improved with fluid removal. Please note, the patient has also been empirically treated with IV antibiotics in the past. He is currently on ceftriaxone. 3. Overall agree with current management. Job ID: [id number]
--- NOTE | 2019-10-12 09:43 | PRG ---
DATE OF SERVICE: 10/12/2019 SUBJECTIVE: Mr. Borges looks better today. His breathing is improved. OBJECTIVE: VITAL SIGNS: His blood pressure is 159/87 with a pulse of 80. Earlier, the blood pressure was in the 130 systolic. He did receive some Lasix today, and he is making urine. LUNGS: Clear. CARDIAC: Normal S1. Normal S2. ABDOMEN: Obese and nontender. EXTREMITIES: Still moderate edema with chronic venous stasis changes. ASSESSMENT: 1. Congestive heart failure, diastolic, somewhat improved. 2. Renal failure, making some urine, now also got dialyzed yesterday. 3. Creatinine is down to 3.79. PLAN: 1. Given daily dose of Lasix. 2. Dr. Branch is also planning on dialyzing him in the next few days. 3. I would obtain blood cultures. I suspect what happens. He had multiple medical problems including ldyfhuxv-xv-flgeza aortic stenosis and atrial fibrillation and then deteriorated because he got septic. Platelet count is still low at 76,000. Plan as outlined above, dialysis and also Lasix. 4. Not currently anticoagulated due to low platelet count. 5. Prognosis is still guarded, but he is improving. Job ID: [id number]
--- NOTE | 2019-10-12 14:17 | PRG ---
DATE OF SERVICE: 10/12/2019 SERVICE: Pulmonary Medicine. INTERVAL HISTORY: The patient is doing really well from Respiratory standpoint. He is down to 2 L nasal cannula. Last night, he used his BiPAP briefly. He had a little bit of confusional state. Otherwise, he tolerated dialysis well yesterday. Dialysis is once again being planned for today. His oxygen requirements continue to improve. PHYSICAL EXAMINATION: VITAL SIGNS: Pulse 77, blood pressure 128/82, respirations 21, saturation 97%, currently on room air. GENERAL: The patient is awake and alert, in no apparent distress. LUNGS: Very good air entry. There is a slightly prolonged expiratory phase. Crackles are present. HEART: Normal rate and regular. ABDOMEN: Soft, nontender, nondistended. Bowel sounds are positive. MUSCULOSKELETAL: No cyanosis or clubbing. There is 1 to 2+ pitting in the bilateral lower extremities. NEUROLOGIC: Grossly nonfocal. LABORATORY DATA: WBC 9.7, hemoglobin 13.8, platelets 100,000 and uptrending. Creatinine 3.79, BUN 103. Basic metabolic profile is otherwise unremarkable. Magnesium 2.7, phosphorus 6.3 and gently downtrending. ASSESSMENT: 1. Acute hypoxic and hypercapnic respiratory failure, resolving. 2. Chronic obstructive pulmonary disease with acute exacerbation. 3. Acute kidney injury on chronic kidney disease, likely progressing to end- stage renal disease. 4. Non-ST elevation myocardial infarction. 5. Severe sepsis secondary to cellulitis. 6. Bacteremia with secondary to Pasteurella multocida. 7. Aortic stenosis, severe. 8. Atrial fibrillation, permanent. DISCUSSION AND PLAN: The patient is doing fine from Respiratory standpoint. At this point, he is stable for transition out of the ICU to the telemetry unit. He has no further requirements for Pulmonary Critical Care opinion, and I will sign off. Please call with additional questions or concerns through time. Job ID: [id number] [facility]
[2019-10-12] MEDS: cefTRIAXone\\ROCEPHIN 2 GM in Sodium Chloride 0.9% 100 ML IVPB SCH (22:58)
[2019-10-13 04:30] LABS: Anion Gap 20 mmol/L (10-20); BUN (Urea Nitrogen) 93 mg/dL (8.4-25.7); Calc. Creatinine Clearance 36 mL/min (70-130); Calcium 8.1 mg/dL (7.8-10.44); Carbon Dioxide 25 mmol/L (23-31); Chloride 95 mmol/L (98-107); Estimated GFR-MDRD 22; Glucose 140 mg/dL (83-110); Magnesium 2.4 mg/dL (1.6-2.6); Potassium 3.9 mmol/L (3.5-5.1); Sodium 136 mmol/L (136-145)
[2019-10-13] MEDS ORDERED: Furosemide 20 MG/2 ML VIAL SLOW IVP SCH (06:00)
[2019-10-13 06:03] LABS: Hemoglobin 14.2 g/dL (14.0-18.0); Mean Corpuscular HGB CONC 32.2 g/dL (32.0-36.0); Mean Corpuscular Volume 96.1 fL (78.0-98.0); Mean Platelet Volume 9.1 fL (7.4-10.4); Platelet Count 120 thou/uL (130-400); RBC Distribution Width 13.4 % (11.5-14.5); Red Blood Cell (RBC) Count 4.59 mill/uL (4.70-6.10); White Blood Cell (WBC) Count 10.3 thou/uL (4.8-10.8)
[2019-10-13 06:04] LABS: Band 10 % (5-11); Eosinophils 1 % (0-10); Lymphocytes 6 % (21-51); MDiff Complete? YES; Monocytes 12 % (0-10); Myelocyte 2 % (0-0); Neutrophil 69 % (42-75); Platelet Morphology Comment Appears Decreased
--- NOTE | 2019-10-13 06:35 | PDOC.FM ---
- Subjective Subjective: Mr. Borges was sleeping comfortably. Denies any difficulty breathing. Feeling well he says. - Objective Vital Signs & Weight: Vital Signs (12 hours) Temp Pulse Resp BP BP Pulse Ox 10/13/19 03:54 97.0 F L 82 20 153/75 H 93 L 10/12/19 22:58 151/95 H 10/12/19 21:09 97.6 F 70 18 138/80 92 L 10/12/19 19:58 98.0 F Weight Weight 133 kg Most Recent Monitor Data Heart Rate from ECG 82 NIBP 123/73 NIBP BP-Mean 89 Respiration from ECG 21 SpO2 93 I&O: 10/11/19 10/12/19 10/13/19 06:59 06:59 06:59 Intake Total 720 1900 1317 Output Total 1150 1125 600 Balance -430 775 717 Result Diagrams: 10/13/19 03:27 10/13/19 03:27 Phys Exam - Physical Examination Constitutional: NAD Respiratory: no wheezing, clear to auscultation bilateral Cardiovascular: irregular Gastrointestinal: positive bowel sounds 1+ pitting edema Neurological: moves all 4 limbs Deviation from normal: RLE erythema improved Dx/Plan (1) CAP (community acquired pneumonia) Code(s): J18.9 - PNEUMONIA, UNSPECIFIED ORGANISM Status: Acute (2) Atrial fibrillation Code(s): I48.91 - UNSPECIFIED ATRIAL FIBRILLATION Status: Acute (3) Congestive heart failure Code(s): I50.9 - HEART FAILURE, UNSPECIFIED Status: Acute (4) Gout Code(s): M10.9 - GOUT, UNSPECIFIED Status: Acute (5) HTN (hypertension) Code(s): I10 - ESSENTIAL (PRIMARY) HYPERTENSION Status: Acute (6) NSTEMI (non-ST elevated myocardial infarction) Code(s): I21.4 - NON-ST ELEVATION (NSTEMI) MYOCARDIAL INFARCTION Status: Acute - Plan Plan: 84 yo M with PMH prior dialysis presented to ED with SOB and was admitted with worsening renal function and respiratory status. Pasteurella bacteremia - Abx switched to rocephin per Dr. Carver - Cellulitis of RLE is presumed source. Spoke with niece and she got hx from neighbor that dog did bite patient's leg. Dog was put down last Tuesday. Acute hypoxic hypercapneic respiratory failure, improving - Lactic acidosis of 3.6, WBC 23 with 21%bands, Procal 64, WBC now downtrending - Empiric abx discontinued. No bipap required >24 hrs. Satting well with NC 2L. - Pulm consulted, signed off CHF diastolic, concern for exacerbation - ECHO- diastolic CHF, mod/severe aortic stenosis - Continue coreg. Lasix 20 mg daily per cardiology. - Cardiology consulted, Dr. Rahman VALERIE on CKD vs ESRD - He has a history of renal disease requiring dialysis in past - Appreciate recommendations from Dr. Branch - Plan for continued dialysis treatments with plan for outpatient dialysis Physical deconditioning - continue PT/OT/speech. - able to do minimal with PT. Would likely benefit from rehab/SNF at discharge as it doesnt seem patient would be able to go back to living alone at home at this time. Atrial fibrillation, chronic - appreciate cardiology recs. Has been rate controlled - was not on therapeutic anticoagulation at home, patient seemed unaware of this. Chadsvasc score 4, high risk with 4.8% stroke. Hasbled score 2, moderate bleeding risk, 4.1%. Risks/benefits will need to be discussed with patient/MPOA for longterm anticoagulation. He seems to be significant fall risk. Thrombocytopenia, improving - decreased from 120 on admission to 80. Will continue to monitor. - Switched to heparin for DVT ppx. NSTEMI 2/2 demand - Troponin 0.465 > 0.532, downtrended - Was on heparin gtt, discontinued 10/08 Mod/Severe aortic stenosis R shoulder pain - present since admission, XR negative - tramadol, tylenol prn HTN - Normotensive. Will continue coreg per cardiology Dispo: continue current management, HD gradually increasing, respiratory status improving, being treated for bacteremia Code: Full PCP: Julissa Savage Addendum - Attending - Attending Attestation Date/Time: 10/13/19 [id number] I personally evaluated the patient and discussed the management with Dr. Lux I agree with the History, Examination, Assessment and Plan documented above with any addition or exceptions noted below- 1) Pasturella cellulitis and bacteremia - continue current abx. 2) ESRD- continue HD. Working on outpatient arrangements. 3) Thrombocytopenia- improved; continue to monitor. 4) Deconditioning- continue PT; will most likely need SNF/swing bed. Case management to help with arrangements.
--- NOTE | 2019-10-13 11:54 | PRG ---
DATE OF SERVICE: 10/13/2019 SUBJECTIVE: Mr. Borges is an 84-year-old white male, seen by the Renal Service for his acute kidney injury on top of his chronic renal failure. Due to the progressive azotemia and volume overload, he has been initiated on dialysis. He is currently undergoing hemodialysis today. He is tolerating said treatment. Shortness of breath is much improved. OBJECTIVE: VITAL SIGNS: Blood pressure is 143/84, heart rate 89, respiratory rate 18, temperature 97.4, and pulse ox 97%. GENERAL: Noted to be awake, alert, comfortable, not in overt distress. SKIN: Adequate turgor. HEENT: He has pinkish conjunctivae. Anicteric sclerae. NECK: No neck mass. No carotid bruits. No JVD. CHEST: No deformities. LUNGS: Clear breath sounds. HEART: Normal sinus rhythm. No murmurs. No gallops. No rubs. ABDOMEN: Globular, soft, and nontender. No masses. EXTREMITIES: Trace edema. No deformities. MEDICATIONS: Medications of October 13, 2019, were reviewed. LABORATORY DATA: Laboratories of October 12, 2019; white count 9.7, hemoglobin 13.8. On October 13, 2019; sodium 136, potassium 3.9, chloride 95, carbon dioxide 25, BUN 93, creatinine 2.81, glucose 140, calcium 8.1, magnesium 2.4, and phosphorus is noted to be 5.0. ASSESSMENT AND PLAN: 1. Hyperphosphatemia - we will initiate Renvela with the patient at 800 mg one tablet t.i.d. with meals. 2. Chronic renal failure/end-stage renal disease, continuing hemodialysis regimen. We will resume back 3 times a week hemodialysis with this patient with fluid removal. 3. Congestive heart failure, clinically much improved with fluid removal with dialysis. Overall, agree with current management. Job ID: [id number]
[2019-10-13] MEDS: Sevelamer Carbonate 800 MG TAB PO SCH ×2 (12:19→17:59)
[2019-10-13] MEDS: Heparin 5,000 UNITS/ML VIAL SC SCH ×2 (12:20→20:57)
[2019-10-13] MEDS: methylPREDNISolone Sod Succ 40 MG VIAL IVP SCH (12:20)
[2019-10-13] MEDS: Tamsulosin HCl 0.4 MG CAP PO SCH (12:20)
[2019-10-13] MEDS: Carvedilol 6.25 MG TAB PO SCH ×2 (12:20→20:57)
[2019-10-13] MEDS ORDERED: Fluticasone Propionate Nasal Spray 16 gm Bottle NASAL SCH (18:15)
[2019-10-13] MEDS: cefTRIAXone\\ROCEPHIN 2 GM in Sodium Chloride 0.9% 100 ML IVPB SCH (20:56)
[2019-10-13] MEDS ORDERED: diphenhydrAMINE 50 MG/ML VIAL IVP SCH (23:30)
[2019-10-14 04:14] LABS: Phosphorus 4.1 mg/dL (2.3-4.7)
[2019-10-14 04:17] LABS: Anion Gap 19 mmol/L (10-20); BUN (Urea Nitrogen) 75 mg/dL (8.4-25.7); Calc. Creatinine Clearance 43 mL/min (70-130); Calcium 8.5 mg/dL (7.8-10.44); Carbon Dioxide 22 mmol/L (23-31); Chloride 98 mmol/L (98-107); Estimated GFR-MDRD 27; Glucose 112 mg/dL (83-110); Sodium 135 mmol/L (136-145)
[2019-10-14 04:26] LABS: Band 6 % (5-11); Hemoglobin 15.1 g/dL (14.0-18.0); Lymphocytes 4 % (21-51); MDiff Complete? YES; Mean Corpuscular Hemoglobin 30.5 pg (27.0-31.0); Mean Corpuscular Volume 95.3 fL (78.0-98.0); Mean Platelet Volume 9.1 fL (7.4-10.4); Metamyelocyte 1 % (0-0); Monocytes 9 % (0-10); Myelocyte 2 % (0-0); Neutrophil 78 % (42-75); Platelet Count 129 thou/uL (130-400); RBC Distribution Width 13.3 % (11.5-14.5); Red Blood Cell (RBC) Count 4.96 mill/uL (4.70-6.10); White Blood Cell (WBC) Count 12.3 thou/uL (4.8-10.8)
[2019-10-14] MEDS ORDERED: Furosemide 20 MG/2 ML VIAL SLOW IVP SCH (06:00)
--- NOTE | 2019-10-14 06:55 | PDOC.FM ---
- Subjective Subjective: Mr. Borges was sitting up in bed. He has no complaints this morning. Nursing reports patient was more agitated and disoriented last night. He is currently oriented to person and time. Thinks he is in [place]. - Objective Vital Signs & Weight: Vital Signs (12 hours) Temp Pulse Resp BP Pulse Ox 10/14/19 03:25 98.1 F 82 24 H 173/89 H 92 L 10/13/19 19:45 97.6 F 76 18 130/68 93 L Weight Weight 125 kg Most Recent Monitor Data Heart Rate from ECG 82 NIBP 123/73 NIBP BP-Mean 89 Respiration from ECG 21 SpO2 93 I&O: 10/12/19 10/13/19 10/14/19 06:59 06:59 06:59 Intake Total 1900 1557 700 Output Total 1125 1500 480 Balance 775 57 220 Result Diagrams: 10/14/19 03:13 10/14/19 03:13 Phys Exam - Physical Examination Constitutional: NAD Respiratory: clear to auscultation bilateral Cardiovascular: irregular (a fib) Gastrointestinal: non-tender, positive bowel sounds chronic changes, edema improved Neurological: moves all 4 limbs Psychiatric: normal affect Deviation from normal: A&Ox2 Skin: normal turgor Dx/Plan (1) CAP (community acquired pneumonia) Code(s): J18.9 - PNEUMONIA, UNSPECIFIED ORGANISM Status: Acute (2) Atrial fibrillation Code(s): I48.91 - UNSPECIFIED ATRIAL FIBRILLATION Status: Acute (3) Congestive heart failure Code(s): I50.9 - HEART FAILURE, UNSPECIFIED Status: Acute (4) Gout Code(s): M10.9 - GOUT, UNSPECIFIED Status: Acute (5) HTN (hypertension) Code(s): I10 - ESSENTIAL (PRIMARY) HYPERTENSION Status: Acute (6) NSTEMI (non-ST elevated myocardial infarction) Code(s): I21.4 - NON-ST ELEVATION (NSTEMI) MYOCARDIAL INFARCTION Status: Acute - Plan Plan: 84 yo M with PMH prior dialysis presented to ED with SOB and was admitted with worsening renal function and respiratory status. Pasteurella bacteremia - Abx switched to rocephin per Dr. Carver - Cellulitis of RLE is presumed source. Spoke with niece and she got hx from neighbor that dog did bite patient's leg. Dog was put down last Tuesday. Acute hypoxic hypercapneic respiratory failure, improving - Lactic acidosis of 3.6, WBC 23 with 21%bands, Procal 64, WBC now downtrending - Empiric abx discontinued. No bipap required >24 hrs. Satting well with NC 2L. - Pulm consulted, signed off CHF diastolic, concern for exacerbation - ECHO- diastolic CHF, mod/severe aortic stenosis - Continue coreg. Lasix 20 mg daily per cardiology. - Cardiology consulted, Dr. Rahman VALERIE on CKD vs ESRD - He has a history of renal disease requiring dialysis in past - Appreciate recommendations from Dr. Branch - Plan for continued dialysis treatments with plan for outpatient dialysis Physical deconditioning - continue PT/OT/speech. - able to do minimal with PT. Would likely benefit from rehab/SNF at discharge as it doesnt seem patient would be able to go back to living alone at home at this time. Atrial fibrillation, chronic - appreciate cardiology recs. Has been rate controlled - was not on therapeutic anticoagulation at home, patient seemed unaware of this. Chadsvasc score 4, high risk with 4.8% stroke. Hasbled score 2, moderate bleeding risk, 4.1%. Risks/benefits will need to be discussed with patient/MPOA for correction anticoagulation. He seems to be significant fall risk. Thrombocytopenia, improving - decreased from 120 on admission to 80. Will continue to monitor. - Switched to heparin for DVT ppx. NSTEMI 2/2 demand - Troponin 0.465 > 0.532, downtrended - Was on heparin gtt, discontinued 10/08 Mod/Severe aortic stenosis R shoulder pain - present since admission, XR negative - tramadol, tylenol prn HTN - Normotensive. Will continue coreg per cardiology Dispo: continue current management, respiratory status improving, being treated for bacteremia. Will need CM for placement assistance as patient will be nearing ready for discharge soon. Code: Full PCP: Julissa Savage Addendum - Attending - Attending Attestation Date/Time: 10/14/19 0325 I personally evaluated the patient and discussed the management with Dr. Lux I agree with the History, Examination, Assessment and Plan documented above with any addition or exceptions noted below - Patient denies any complaints. Afebrile VSS. A/P: 1) Pasturella cellulitis and bacteremia- continue IV abx; 2) ESRD- continue HD as per nephrology; 3) Deconditioning - continue PT. May need SNF placement.
[2019-10-14] MEDS: Sevelamer Carbonate 800 MG TAB PO SCH ×3 (08:42→17:49)
[2019-10-14] MEDS: Carvedilol 6.25 MG TAB PO SCH ×2 (08:42→20:33)
[2019-10-14] MEDS: predniSONE 20 MG TAB PO SCH (08:42)
[2019-10-14] MEDS: Tamsulosin HCl 0.4 MG CAP PO SCH (08:42)
[2019-10-14] MEDS: Heparin 5,000 UNITS/ML VIAL SC SCH ×2 (08:43→20:32)
[2019-10-14] MEDS: traMADol HCl 50 MG TAB PO PRN ×2 (08:43→20:31)
[2019-10-14] MEDS: Fluticasone Propionate Nasal Spray 16 gm Bottle NASAL SCH (08:43)
--- NOTE | 2019-10-14 10:54 | PRG ---
DATE OF SERVICE: 10/14/2019 SERVICE: Renal Medicine. SUBJECTIVE: Mr. Borges is an 84-year-old white male, followed up by the Renal Service for his acute kidney injury on top of his chronic renal failure. Due to volume overload and progressive azotemia, he was initiated on dialysis. He has been tolerating his dialysis. He did undergo 3 hours and 45 minutes of hemodialysis yesterday. He did shorten by 15 minutes. Please note, he remains asymptomatic. He states that he is feeling better. He denies any chest pain or any worsening shortness of breath. OBJECTIVE: VITAL SIGNS: Blood pressure was noted to be at 173/89 with a heart rate of 82, respiratory rate 24, temperature 98.1. GENERAL: Noted to be awake, alert, sitting comfortable, not in distress. SKIN: Adequate turgor. HEENT: He has pinkish conjunctivae. Anicteric sclerae. NECK: No neck mass. No carotid bruits. No JVD. CHEST: No deformities. LUNGS: Decreased breath sounds. HEART: Normal sinus rhythm. No murmur. No gallops. No rubs. ABDOMEN: Globular, soft, nontender. No masses. EXTREMITIES: Trace edema. MEDICATIONS: Medications of October 14, 2019, were reviewed. LABORATORY DATA: Laboratories of October 14, 2019; white count 12.3, hemoglobin 15.1, sodium 135, potassium 4, chloride 98, carbon dioxide 22, BUN 75, creatinine 2.3, calcium 2.5, magnesium 2.0, phosphorus 4.1. ASSESSMENT/PLAN: 1. Hyperphosphatemia-the patient started on phosphate binders-improving. 2. Chronic renal failure/end-stage renal disease. Continuing 3 times a week hemodialysis. Again, fluid removal only as tolerated by the patient. 3. Congestive heart failure, clinically much improved with fluid removal with dialysis. 4. Pasteurella bacteremia, currently on IV antibiotics. 5. Agree with current management. Job ID: [id number]
--- NOTE | 2019-10-14 18:12 | PRG ---
DATE OF SERVICE: 10/14/2019 SUBJECTIVE: A bit delirious, has a sitter in the room to keep him from falling from bed. He denies any headaches. No shortness of breath. No abdominal pain. No leg pain. OBJECTIVE: VITAL SIGNS: His T-max is 98.1, blood pressure 145/85, pulse 84, respirations 18, and O2 saturation 96% on 3 L. HEENT: Blepharitis noted. Ocular movements conjugate. Oral cavity is somewhat dry. Evidence of herpetic stomatitis in palate and lips. LUNGS: Clear to auscultation and percussion with faint basilar crackles. CARDIAC: S1 and S2, regular rate. ABDOMEN: Soft, not distended. EXTREMITIES: Right leg with much improved erythema, less swelling, and less tenderness. LABORATORY DATA: Sodium 135, creatinine 2.3, which is markedly improved. White cell count was 10.3, which is improved as well, now is a little bit up to 12.3; hemoglobin 15; platelets 129,000; 78% neutrophils. ASSESSMENT AND DISCUSSION: Ischemic cardiomyopathy, chronic kidney disease stage 4 to 5, cellulitis of right lower extremity due to pasteurella multocida with improvement, bacteremia due to the above, and now evidence of herpetic stomatitis. We will start acyclovir and continue Rocephin. Eventual transition to probably Augmentin to avoid drug-drug interactions. Job ID: [id number] [facility]
[2019-10-14] MEDS: Amoxicillin/Potassium Clav 875 MG TAB PO SCH (20:31)
[2019-10-14] MEDS: Acyclovir 400 mg Tablet PO SCH (20:31)
[2019-10-14] MEDS ORDERED: traMADol HCl 50 MG TAB PO SCH (23:30)
[2019-10-15 04:45] LABS: Anion Gap 19 mmol/L (10-20); BUN (Urea Nitrogen) 94 mg/dL (8.4-25.7); Calc. Creatinine Clearance 40 mL/min (70-130); Calcium 8.7 mg/dL (7.8-10.44); Carbon Dioxide 24 mmol/L (23-31); Chloride 99 mmol/L (98-107); Estimated GFR-MDRD 26; Glucose 104 mg/dL (83-110); Magnesium 2.2 mg/dL (1.6-2.6); Sodium 138 mmol/L (136-145)
[2019-10-15 04:53] LABS: Phosphorus 5.2 mg/dL (2.3-4.7)
[2019-10-15 04:56] LABS: Band 14 % (5-11); Hemoglobin 15.1 g/dL (14.0-18.0); Lymphocytes 4 % (21-51); MDiff Complete? YES; Mean Corpuscular HGB CONC 32.1 g/dL (32.0-36.0); Mean Corpuscular Hemoglobin 30.9 pg (27.0-31.0); Mean Corpuscular Volume 96.2 fL (78.0-98.0); Mean Platelet Volume 8.2 fL (7.4-10.4); Monocytes 8 % (0-10); Neutrophil 74 % (42-75); Platelet Count 138 thou/uL (130-400); RBC Distribution Width 13.4 % (11.5-14.5); Red Blood Cell (RBC) Count 4.88 mill/uL (4.70-6.10); White Blood Cell (WBC) Count 13.9 thou/uL (4.8-10.8)
--- NOTE | 2019-10-15 05:54 | PDOC.FM ---
- Subjective Subjective: Pt resting this morning. Cousin states that this is the first he has really slept all night. Continues to be quite restless. Not at his baseline mentation. Cousin states pt often seems in pain and wonders if he could get more rx. Pt has developed oral ulcers. No acute events overnight. Cousin who is MPOA is agreeable with SNF/Rehab placement upon DC. - Objective Vital Signs & Weight: Vital Signs (12 hours) Temp Pulse Resp BP BP Pulse Ox 10/15/19 04:00 97.7 F 75 19 162/74 H 99 10/14/19 23:03 97.5 F L 81 22 H 164/98 H 98 10/14/19 20:33 159/78 H 10/14/19 19:45 97.7 F 84 24 H 159/78 H 97 Weight Weight 122.5 kg Most Recent Monitor Data Heart Rate from ECG 82 NIBP 123/73 NIBP BP-Mean 89 Respiration from ECG 21 SpO2 93 I&O: 10/13/19 10/14/19 10/15/19 06:59 06:59 06:59 Intake Total 1557 700 960 Output Total 5271 771 0527 Balance 57 220 -760 Result Diagrams: 10/15/19 03:48 10/15/19 03:48 Phys Exam - Physical Examination Constitutional: NAD Dry MM, diffuse labial and oral cavity ulcers Neck: supple Bibasilar diminished breath sounds with slight crackles [place] clear irregularly irregular, normal rate Gastrointestinal: soft, non-tender Trace edema Neurological: non-focal Deviation from normal: A&O x1, disoreiented Dx/Plan (1) Bacteremia due to Gram-negative bacteria Code(s): R78.81 - BACTEREMIA Status: Acute (2) Congestive heart failure Code(s): I50.9 - HEART FAILURE, UNSPECIFIED Status: Acute (3) HTN (hypertension) Code(s): I10 - ESSENTIAL (PRIMARY) HYPERTENSION Status: Acute (4) Acute respiratory failure with hypoxia and hypercapnia Code(s): J96.01 - ACUTE RESPIRATORY FAILURE WITH HYPOXIA; J96.02 - ACUTE RESPIRATORY FAILURE WITH HYPERCAPNIA Status: Acute (5) Herpes stomatitis Code(s): B00.2 - HERPESVIRAL GINGIVOSTOMATITIS AND PHARYNGOTONSILLITIS Status : Acute - Plan Plan: 84 yo M with PMH prior dialysis presented to ED with SOB and was admitted with worsening renal function and respiratory status. Pasteurella bacteremia - 2/2 dog bite of lower extremity - Abx switched to augmentin per Dr. Carver Herpetic Stomatitis - Acyclovir Acute hypoxic hypercapneic respiratory failure, improving - Satting well with NC 2L. - Wean order placed with parameters >93% - Pulm consulted, signed off CHF diastolic, concern for exacerbation - ECHO- diastolic CHF, mod/severe aortic stenosis - Continue coreg. Lasix 20 mg daily per cardiology. - Cardiology consulted, Dr. Rahman VALERIE on CKD vs ESRD - He has a history of renal disease requiring dialysis - Appreciate recommendations from Dr. Branch - Plan for continued dialysis treatments with plan for outpatient dialysis Physical deconditioning - Continue PT/OT/speech. - Able to do minimal with PT. - Goal would be for rehab/SNF placement on DC as pt would likely not succeed on his own immediately following this admission Atrial fibrillation, chronic - Remains rate controlled - Was not on therapeutic anticoagulation at home, patient seemed unaware of this. Chadsvasc score 4, high risk with 4.8% stroke. Hasbled score 2, moderate bleeding risk, 4.1%. - Considering patient's multiple comorbidities and fall risk would recommend not anticoagulating going forward - Will speak with MPOA and discuss management Thrombocytopenia, improving - Currently 138 - Heparin for DVT ppx. NSTEMI 2/2 demand - Troponin 0.465 > 0.532, downtrended - Was on heparin gtt, discontinued 10/08 Mod/Severe aortic stenosis R shoulder pain - present since admission, XR negative - tramadol, tylenol prn HTN - Normotensive. Will continue coreg per cardiology Dispo: Transitioned to PO abx, respiratory status improving, being treated for bacteremia. Will need CM for placement assistance as patient will be nearing ready for discharge soon. Code: Full PCP: Julissa Savage Addendum - Attending - Attending Attestation Date/Time: 10/15/19 1321 I personally evaluated the patient and discussed the management with Dr. Burris. I agree with the History, Examination, Assessment and Plan documented above with any addition or exceptions noted below. Patient here for pasteurella bacteremia. He is having significant backpain resistant to pain meds. Concern for hematogenous spread, will obtain imaging. Modulate pain control as needed. Continue HD but hope that he will have some return of renal function due to his increasing UOP. Wean O2 as tolerated. Placement.
--- NOTE | 2019-10-15 07:50 | PRG ---
DATE OF SERVICE: 10/14/2019 TRANSITION OF CARE NOTE An 84-year-old male presented as a transfer from [place] for increasing shortness of breath. Very limited history was able to be obtained on admission as the patient was a poor historian. The patient lives alone on a [place] in [place]. He was admitted for presumed fluid overload with concern for CHF exacerbation, NSTEMI, worsening renal function, and presumed bacterial pneumonia. He additionally has a past medical history of hypertension, chronic atrial fibrillation, gout. The patient was given Lasix on admission. In regard to his renal function, Nephrology was consulted. He was given albumin at the beginning of his hospital stay in hopes of recovering renal function. However, the patient was started on hemodialysis using fistula that was used in the years prior. Dr. Branch managed this and the patient has been titrated up to 3 times weekly hemodialysis. He additionally was started on Renvela for hyperphosphatemia. In regard to his cardiac function, an echocardiogram was performed on 10/10/2019 , which showed ejection fraction of 50% to 60%, it was a technically difficult study. Atrial fibrillation present. Left atrium severely dilated. No evidence of mitral valve stenosis. Trace mitral regurgitation present. Aortic stenosis, xyrjexvr-[id number] with peak gradient 44 mmHg, mean gradient 30 mmHg. Cardiology was on the case, Dr. Rahman. Diuresis with Lasix was done as needed. Additionally, the patient's home carvedilol dose was decreased and clonidine was not continued during the hospitalization up until this point as blood pressure would not tolerate. He did he did require BiPAP and transfer to [facility] during a portion of his hospitalization. In regard to his infection, the patient presented with lactic acidosis of 3.6, white blood cell count of 23% with 21% bands, and elevated procalcitonin of 64. He was initially started with empiric treatment with vancomycin and cefepime. Bacterial pneumonia was initially presumed though chest x-ray was difficult and did not show an obvious consolidation considering the fluid overload signs that were present. Blood cultures were positive for pasteurella. Infectious Disease was consulted. The patient did develop around this time, a right lower extremity cellulitis, which is the presumed source of infection. After getting more history from his medical power of business attorney, niece, it was discovered that the patient did have a dog that likely bit his legs. The dog was put down the week prior to admission. The patient was switched to Rocephin for antibiotic coverage by Infectious Disease. At this point during the hospitalization, the patient's respiratory status has greatly improved. He is now back on the floor and oxygen by nasal cannula is being decreased. He is tolerating dialysis well. The patient is significantly deconditioned physically and will likely need placement in a rehab or similar facility upon discharge as he will be unable to return home alone as he previously was. Case Management has been consulted and I would expect if things continue to go in the right direction, the patient would be able to be discharged in the coming days when placement is arranged. Job ID: [id number] [facility]
[2019-10-15] MEDS: predniSONE 20 MG TAB PO SCH (08:37)
[2019-10-15] MEDS: Acyclovir 400 mg Tablet PO SCH ×3 (08:37→20:52)
[2019-10-15] MEDS: Sevelamer Carbonate 800 MG TAB PO SCH ×3 (08:38→17:04)
[2019-10-15] MEDS: Carvedilol 6.25 MG TAB PO SCH ×2 (08:38→17:04)
[2019-10-15] MEDS: Tamsulosin HCl 0.4 MG CAP PO SCH (08:38)
[2019-10-15] MEDS: Amoxicillin/Potassium Clav 875 MG TAB PO SCH ×2 (08:38→20:43)
[2019-10-15] MEDS: Heparin 5,000 UNITS/ML VIAL SC SCH ×2 (08:38→20:45)
[2019-10-15] MEDS: Fluticasone Propionate Nasal Spray 16 gm Bottle NASAL SCH (08:56)
[2019-10-15] MEDS ORDERED: hydrALAZINE 20 MG/ML VIAL SLOW IVP PRN (08:58)
[2019-10-15] MEDS: traMADol HCl 50 MG TAB PO PRN ×2 (09:55→18:35)
[2019-10-15] MEDS ORDERED: Furosemide 20 MG/2 ML VIAL SLOW IVP SCH (10:00)
[2019-10-15] MEDS ORDERED: Carvedilol 6.25 MG TAB PO SCH (10:00)
--- NOTE | 2019-10-15 10:11 | PRG ---
DATE OF SERVICE: 10/15/2019 SUBJECTIVE: Katerina is sitting up in the chair. He does look better. OBJECTIVE: VITAL SIGNS: His blood pressure however is high at 194/88, pulse is 80, it is irregular. LUNGS: Clear. CARDIAC: Irregularly irregular. ABDOMEN: Obese. EXTREMITIES: There is only [id number] edema. PERTINENT LABORATORY DATA: The creatinine is down to 2.35. ASSESSMENT: 1. Diastolic congestive heart failure, improving. 2. Renal failure, appears stable. 3. Lcplbdzx-ld-fprdkd aortic stenosis. 4. Sepsis. 5. Pasteurella multocida. He is on acyclovir and Rocephin. PLAN: 1. We will add hydralazine. 2. I think it is reasonable to give him low doses of furosemide and continue to follow kidney function. Job ID: [id number]
--- NOTE | 2019-10-15 10:41 | PRG ---
DATE OF SERVICE: 10/15/2019 SUBJECTIVE: Mr. Borges is an 84-year-old white male, followed up by the Renal Service for his acute kidney injury on top of his chronic renal failure, CHF, and progressive azotemia. He has been initiated dialysis with some improvement with his breathing. He has been very agitated last night. He voices no new complaints. He denies any worsening shortness of breath. He has been started on hydralazine by his wool scourer. He is also on IV Lasix. OBJECTIVE: VITAL SIGNS: Blood pressure is 194/88, heart rate 79, respiratory rate 16, temperature 98.1, and pulse ox 97%. GENERAL: Noted to be awake, alert, comfortable, not in overt distress. SKIN: Adequate turgor. HEENT: Pinkish conjunctivae. Anicteric sclerae. NECK: No neck mass. No carotid bruits. No JVD. CHEST: No deformities. LUNGS: Clear breath sounds. No wheezing. No crackles. HEART: Normal sinus rhythm. No murmur. No gallops. No rubs. ABDOMEN: Globular, soft, and nontender. No masses. EXTREMITIES: Trace edema. MEDICATIONS: Medications of October 15, 2019, were reviewed. LABORATORY DATA: October 15, 2019; white count 13.9, hemoglobin 15.1, sodium 138, potassium 4.0, chloride 99, carbon dioxide 24, BUN 94, creatinine 2.35, calcium 8.7, magnesium 2.2, and phosphorus 5.2. ASSESSMENT/PLAN: 1. Hyperphosphatemia. The patient has been started on Renvela 800 mg p.o. t.i.d. with meals. 2. End-stage renal disease/chronic renal failure - we will continue 3 times a week hemodialysis with fluid removal as tolerated. 3. Hypertension. Hydralazine has been added by his wool scourer. 4. Shortness of breath, clinically improving. The patient is also on empiric IV antibiotics. Overall, agree with current management. Job ID: [id number]
[2019-10-15] MEDS: hydrALAZINE 25 MG TAB PO SCH ×2 (14:52→20:43)
[2019-10-15] MEDS: Acetaminophen 325 MG TAB PO PRN (18:36)
[2019-10-16] MEDS: Acetaminophen 325 MG TAB PO PRN ×3 (02:48→20:22)
[2019-10-16] MEDS: traMADol HCl 50 MG TAB PO PRN ×3 (02:49→20:22)
[2019-10-16 04:19] LABS: Band 3 % (5-11); Eosinophils 1 % (0-10); Lymphocytes 5 % (21-51); MDiff Complete? YES; Mean Corpuscular HGB CONC 32.2 g/dL (32.0-36.0); Mean Corpuscular Hemoglobin 30.7 pg (27.0-31.0); Mean Corpuscular Volume 95.4 fL (78.0-98.0); Mean Platelet Volume 8.9 fL (7.4-10.4); Monocytes 2 % (0-10); Myelocyte 1 % (0-0); Neutrophil 88 % (42-75); Platelet Count 145 thou/uL (130-400); RBC Distribution Width 13.5 % (11.5-14.5); Red Blood Cell (RBC) Count 4.89 mill/uL (4.70-6.10); Toxic Granulation SLIGHT; Vacuoles SLIGHT; White Blood Cell (WBC) Count 15.3 thou/uL (4.8-10.8)
[2019-10-16 04:56] LABS: Phosphorus 4.8 mg/dL (2.3-4.7)
[2019-10-16 05:20] LABS: Calcium 8.8 mg/dL (7.8-10.44); Chloride 96 mmol/L (98-107); Glucose 94 mg/dL (83-110); Potassium 4.4 mmol/L (3.5-5.1); Sodium 138 mmol/L (136-145)
[2019-10-16 05:22] LABS: Anion Gap 14 mmol/L (10-20); Carbon Dioxide 32 mmol/L (23-31)
[2019-10-16 05:24] LABS: Calc. Creatinine Clearance 43 mL/min (70-130); Estimated GFR-MDRD 29
[2019-10-16 05:25] LABS: BUN (Urea Nitrogen) 99 mg/dL (8.4-25.7)
[2019-10-16 05:26] LABS: Magnesium 2.1 mg/dL (1.6-2.6)
--- NOTE | 2019-10-16 06:12 | PDOC.FM ---
- Subjective Subjective: Pt again resting this morning. Friend in room states that he gets intermittently disoriented and forgetful but at other times seems himself. Often forgets that he has decreased strength. Last night told him that he doesn' t have back pain but that his shoulder pain had returned. - Objective Vital Signs & Weight: Vital Signs (12 hours) Temp Pulse Resp BP BP Pulse Ox 10/16/19 04:00 98.5 F 68 20 134/64 100 10/15/19 23:37 94 L 10/15/19 20:43 74 134/62 10/15/19 20:00 97.6 F 74 20 134/62 92 L Weight Weight 123.921 kg Most Recent Monitor Data Heart Rate from ECG 82 NIBP 123/73 NIBP BP-Mean 89 Respiration from ECG 21 SpO2 93 I&O: 10/14/19 10/15/19 10/16/19 06:59 06:59 06:59 Intake Total 113 063 2784 Output Total 480 2370 1775 Balance 220 1410 -475 Result Diagrams: 10/16/19 03:44 10/16/19 03:44 Phys Exam - Physical Examination Constitutional: NAD HEENT: moist MMs Neck: supple periods of shallow more rapid breathing while sleeping, likely LORRAINE Regular rate, rhythm, systolic murmur noted Gastrointestinal: soft, non-tender Musculoskeletal: no edema Skin: no rash Dx/Plan (1) Bacteremia due to Gram-negative bacteria Code(s): R78.81 - BACTEREMIA Status: Acute (2) Congestive heart failure Code(s): I50.9 - HEART FAILURE, UNSPECIFIED Status: Acute (3) HTN (hypertension) Code(s): I10 - ESSENTIAL (PRIMARY) HYPERTENSION Status: Acute (4) Acute respiratory failure with hypoxia and hypercapnia Code(s): J96.01 - ACUTE RESPIRATORY FAILURE WITH HYPOXIA; J96.02 - ACUTE RESPIRATORY FAILURE WITH HYPERCAPNIA Status: Acute (5) Herpes stomatitis Code(s): B00.2 - HERPESVIRAL GINGIVOSTOMATITIS AND PHARYNGOTONSILLITIS Status : Acute - Plan Plan: 84 yo M with PMH prior dialysis presented to ED with SOB and was admitted with worsening renal function and respiratory status. Pasteurella bacteremia - 2/2 dog bite of lower extremity - Abx switched to augmentin per Dr. Carver - MRI spine ordered to r/o abscess/discitis in patient w/ new onset back pain Herpetic Stomatitis - Acyclovir Acute hypoxic hypercapneic respiratory failure, improving - Satting well with NC 2L, CO2 32 this morning, pt not wearing CPAP at night - Wean order placed with parameters >93% - Pulm consulted, signed off CHF diastolic, concern for exacerbation - ECHO- diastolic CHF, mod/severe aortic stenosis - Continue coreg. Lasix 20 mg daily per cardiology. - Cardiology consulted, Dr. Rahman VALERIE on CKD vs ESRD - He has a history of renal disease requiring dialysis - Appreciate recommendations from Dr. Branch - Plan for continued 3x wk dialysis treatments with plan for outpatient dialysis Physical deconditioning - Continue PT/OT/speech. - Able to do minimal with PT. - Goal would be for rehab/SNF placement on DC as pt would likely not succeed on his own immediately following this admission Atrial fibrillation, chronic - Remains rate controlled - Was not on therapeutic anticoagulation at home, patient seemed unaware of this. Chadsvasc score 4, high risk with 4.8% stroke. Hasbled score 2, moderate bleeding risk, 4.1%. - Considering patient's multiple comorbidities and fall risk would recommend not anticoagulating going forward - Will speak with MPOA and discuss management Thrombocytopenia, improving - Currently 145 - Heparin for DVT ppx. NSTEMI 2/2 demand - Troponin 0.465 > 0.532, downtrended - Was on heparin gtt, discontinued 10/08 Mod/Severe aortic stenosis R shoulder pain - present since admission, XR negative - tramadol, tylenol prn HTN - Normotensive. Will continue coreg per cardiology Dispo: PO abx for pasteurella bacteremia, respiratory status stable but not at baseline with continued O2 requirement. MRI spine ordered to rule out hematogenous spread of infection. CM consulted for placement assistance. Code: Full PCP: Julissa Savage Addendum - Attending - Attending Attestation Date/Time: 10/16/19 1315 I personally evaluated the patient and discussed the management with Dr. Burris. I agree with the History, Examination, Assessment and Plan documented above with any addition or exceptions noted below.
--- NOTE | 2019-10-16 09:05 | PRG ---
DATE OF SERVICE: 10/16/2019 SUBJECTIVE: Mr. Borges is an 84-year-old white male, followed up by the Renal Service for his worsening renal dysfunction. He had progressive azotemia as well as severe volume overload. He has been initiated on dialysis. I have scheduled him for another dialysis treatment of at least 3.5 hours today. Fluid removal will be done as tolerated. He was complaining of back pain. For that reason, he will be undergoing an MRI to rule out possible osteomyelitis. He also has had bacteremia secondary to a gram-negative etiology. Currently, on empiric IV antibiotics. OBJECTIVE: VITAL SIGNS: Blood pressure is 134/64, heart rate 68, respiratory rate 20, temperature 98.5, and pulse ox 100%. GENERAL: The patient is noted to be awake, sitting comfortable, not in overt distress. SKIN: Adequate turgor. HEENT: Pinkish conjunctivae. Anicteric sclerae. NECK: No neck mass. No carotid bruits. No JVD. CHEST: No deformities. LUNGS: Decreased breath sounds. HEART: Normal sinus rhythm. No murmurs, gallops, or rubs. ABDOMEN: Globular, soft, nontender. No masses. EXTREMITIES: No edema. No deformities. LABORATORY DATA: Laboratories of October 16, 2019; sodium 138, potassium 4.4, chloride 96, carbon dioxide 32, BUN 99, creatinine 2.18, calcium 8.8, magnesium 2.1. Medications of October 16, 2019, reviewed. ASSESSMENT AND PLAN: 1. Acute kidney injury/chronic renal failure-BUN still noted at 99. However, there is some slight improvement with the creatinine of 2.18. We will try to observe for any renal recovery. For the moment, continue current hemodialysis regimen. We will do him for 3.5 hours today. 2. Shortness of breath, clinically much improved with fluid removal. 3. ? of gram-negative bacteremia-the patient currently on p.o. antibiotics of Augmentin 875 mg p.o. q.12. 4. Overall, the patient is doing stable. Job ID: [id number]
--- NOTE | 2019-10-16 14:13 | MRI ---
MRI lumbar spine noncontrast HISTORY: Back pain. Bacteremia. FINDINGS: After only a part of the MRI imaging, the patient refused to continue the exam. Exam is dunham ited in that the sagittal images were completed but not the axial images. Of the T2 axial images, only one out of 3 images are available. Vertebral body heights are maintained. Multilevel disc space narrowing and desiccation of the discs. Discogenic endplate changes throughout the bone marrow. No evidence of acute bone marrow edema or paraspinal abscess. No abnormal fluid collections within th e central canal evident. Conus medullaris is within normal limits. T12-L1: Disc space narrowing. Posterior disc bulge and circumferential degenerative changes. Moderate stenosis of the central canal and each neural foramen. L1-2: Mild osteophytosis. Central canal is patent. Mild stenosis of each neural foramen. L2-3: Disc space narrowing. Posterior disc bulge and circumferential degenerative changes. Moderate s tenosis of the central canal. Moderate to severe stenosis of each neural foramen. L3-4: Mild posterior disc bulge. Circumferential degenerative changes. Mild to moderate stenosis of t he central canal. Severe bilateral foraminal stenoses. L4-5: Disc space narrowing and mild posterior disc bulge. Circumferential degenerative changes. Sever e stenosis of the central canal. Very severe stenosis of each neural foramen. L5-S1: Mild disc bulge. Thecal sac is patent. Prominent degenerative changes of the facets. Very teddy re right and severe left foraminal stenoses. IMPRESSION : Prominent multilevel degenerative changes throughout the lumbar spine as detailed above, including mu ltilevel severe central canal and foraminal stenoses. Exam is limited with image is not complete. There is no evidence of central canal or paraspinal absce ss. Findings were called to Dr. Burris at 1404 hours. Code CR.
[2019-10-16] MEDS: hydrALAZINE 25 MG TAB PO SCH ×3 (14:15→20:23)
[2019-10-16] MEDS: Carvedilol 6.25 MG TAB PO SCH ×2 (14:15→17:08)
[2019-10-16] MEDS: Amoxicillin/Potassium Clav 875 MG TAB PO SCH ×2 (14:15→20:22)
[2019-10-16] MEDS: Tamsulosin HCl 0.4 MG CAP PO SCH (14:15)
[2019-10-16] MEDS: Acyclovir 400 mg Tablet PO SCH ×3 (14:15→20:22)
[2019-10-16] MEDS: Sevelamer Carbonate 800 MG TAB PO SCH ×3 (14:15→17:08)
[2019-10-16] MEDS: Fluticasone Propionate Nasal Spray 16 gm Bottle NASAL SCH (14:16)
[2019-10-16] MEDS: Furosemide 20 MG/2 ML VIAL SLOW IVP SCH (14:16)
[2019-10-16] MEDS: Heparin 5,000 UNITS/ML VIAL SC SCH ×2 (14:16→20:23)
[2019-10-16] MEDS: Lidocaine 5% Patch TD SCH (14:39)
--- NOTE | 2019-10-16 14:39 | PDOC.BPN ---
- Brief Progress Note Pt more lucid for evaluation at this time. He states his back pain is located in his lower back, centrally. Denies radiation to his legs or buttocks. Denies any other symptoms or complaint currently. Just recently returned from dialysis. Continues to have fluctuating mental status and agitation. Apparently he got quite upset while at dialysis. Limited lumbar MRI evaluation shows very severe foraminal stenosis and severe central stenosis in the lumbar spine. Discussed findings with patient and accompanying friend. Interested in evaluation by Pain Management. Treating patient's pain currently is medically difficult due to delirium and renal function. Called pain management. They were unsure of which provider was tv production assistant today but would forward on the patient's information to the appropriate physician for consult.
[2019-10-16] MEDS: Lidocaine Patch Removal TOP SCH (22:04)
[2019-10-17] MEDS: Acetaminophen 325 MG TAB PO PRN (03:41)
[2019-10-17] MEDS: traMADol HCl 50 MG TAB PO PRN ×2 (03:41→12:08)
[2019-10-17 05:10] LABS: #Eosinphils 0.3 thou/uL (0.0-0.7); #Lymphocytes 0.7 thou/uL (1.20-3.40); #Monocytes 0.4 thou/uL (0.11-0.59); #Neutrophils 15.7 thou/uL (1.40-6.50); %Basophils 0.1 % (0.0-1.0); %Eosinophils 1.9 % (0.0-10.0); %Monocytes 2.1 % (0.0-10.0); %Neutrophils 91.9 % (42.0-75.0); Hemoglobin 16.1 g/dL (14.0-18.0); Mean Corpuscular HGB CONC 31.7 g/dL (32.0-36.0); Mean Corpuscular Hemoglobin 30.4 pg (27.0-31.0); Mean Corpuscular Volume 95.9 fL (78.0-98.0); Mean Platelet Volume 8.6 fL (7.4-10.4); Platelet Count 154 thou/uL (130-400); RBC Distribution Width 13.5 % (11.5-14.5); Red Blood Cell (RBC) Count 5.29 mill/uL (4.70-6.10)
[2019-10-17 05:32] LABS: Anion Gap 17 mmol/L (10-20); BUN (Urea Nitrogen) 72 mg/dL (8.4-25.7); Calc. Creatinine Clearance 47 mL/min (70-130); Calcium 8.9 mg/dL (7.8-10.44); Carbon Dioxide 27 mmol/L (23-31); Chloride 97 mmol/L (98-107); Estimated GFR-MDRD 32; Glucose 120 mg/dL (83-110); Potassium 3.8 mmol/L (3.5-5.1); Sodium 137 mmol/L (136-145)
[2019-10-17 05:37] LABS: Phosphorus 3.5 mg/dL (2.3-4.7)
--- NOTE | 2019-10-17 06:19 | PDOC.FM ---
- Subjective Subjective: Pt more alert this morning and talkative. His cousin and MPOA is at bedside. She was updated on the current plan and agrees. Pt denies any shortness of breath currently. Notes continued back pain that has had minimal improvement. Tolerating PO well. Nurses notified me that they could not doppler patient's DP pulses. I was able to palpate PT pulse bilaterally, feet had brisk cap refill bilaterally, right foot was warm, left foot was mildly cool, normal sensation throughout. - Objective Vital Signs & Weight: Vital Signs (12 hours) Temp Pulse Resp BP Pulse Ox 10/17/19 04:00 98.2 F 92 20 130/88 93 L 10/16/19 20:23 85 10/16/19 20:00 98.1 F 65 20 117/66 94 L Weight Weight 121.427 kg Most Recent Monitor Data Heart Rate from ECG 82 NIBP 123/73 NIBP BP-Mean 89 Respiration from ECG 21 SpO2 93 I&O: 10/15/19 10/16/19 10/17/19 06:59 06:59 06:59 Intake Total 960 1300 1600 Output Total 2370 1775 525 Balance -1410 -475 1075 Result Diagrams: 10/17/19 04:48 10/17/19 04:48 Phys Exam - Physical Examination Constitutional: NAD Blepheritis bilaterally, herpes stomatitis Neck: full ROM Clear upper mcdaniels, lower mcdaniels diminished likley 2/2 shallow breaths Cardiovascular: RRR Gastrointestinal: soft Musculoskeletal: no edema Non palpable left DP, palpable PT Neurological: moves all 4 limbs Psychiatric: normal affect Deviation from normal: Disoriented to place/time Skin: cap refill <2 seconds Deviation from normal: Brisk cap refill bilateral feet Dx/Plan (1) Bacteremia due to Gram-negative bacteria Code(s): R78.81 - BACTEREMIA Status: Acute (2) Congestive heart failure Code(s): I50.9 - HEART FAILURE, UNSPECIFIED Status: Acute (3) HTN (hypertension) Code(s): I10 - ESSENTIAL (PRIMARY) HYPERTENSION Status: Acute (4) Acute respiratory failure with hypoxia and hypercapnia Code(s): J96.01 - ACUTE RESPIRATORY FAILURE WITH HYPOXIA; J96.02 - ACUTE RESPIRATORY FAILURE WITH HYPERCAPNIA Status: Acute (5) Herpes stomatitis Code(s): B00.2 - HERPESVIRAL GINGIVOSTOMATITIS AND PHARYNGOTONSILLITIS Status : Acute - Plan Plan: 84 yo M with PMH prior dialysis presented to ED with SOB and was admitted with worsening renal function and respiratory status. Pasteurella bacteremia - 2/2 dog bite of lower extremity - Augmentin per Dr. Carver - MRI spine yesterday - incomplete exam due to pt not tolerating - Dr. Gonsalez radiologist - limited read called, has severe central and foraminal stenosis that could be causing his pain, no visible infectious lesion/ abscess Herpetic Stomatitis - Acyclovir Acute hypoxic hypercapneic respiratory failure, improving - Weaned off supplemental O2 yesterday, satting 93% RA this a.m. CHF diastolic, concern for exacerbation - ECHO- diastolic CHF, mod/severe aortic stenosis - Continue coreg. Lasix 20 mg daily per cardiology. ESRD - Dialysis T, , - Appreciate recommendations from Dr. Branch - Plan for continued 3x wk dialysis treatments with plan for outpatient dialysis Physical deconditioning - Continue PT/OT/speech. - Able to do minimal with PT. - Goal would be for rehab/SNF placement on DC as pt would likely not succeed on his own immediately following this admission Atrial fibrillation, chronic - Remains rate controlled - Was not on therapeutic anticoagulation at home, will continue to hold considering pt's risk factors Thrombocytopenia, improving - Currently 154 - Heparin for DVT ppx. NSTEMI 2/2 demand - Troponin 0.465 > 0.532, downtrended - Was on heparin gtt, discontinued 10/08 Mod/Severe aortic stenosis R shoulder pain/Back pain - present since admission, XR negative for shoulder abnormalities, MRI back significant DDD and central/foraminal stenosis - tramadol, tylenol prn - avoiding nephrotoxic rx and rx that could worsen delirium - consulted pain management for possible injection HTN - Normotensive. Will continue coreg per cardiology Code: Full PCP: Julissa Savage Dispo: PO abx for pasteurella bacteremia, O2 requirements now at baseline. MRI lumbar spine w/o abscess but significant for lumbar DDD and nerve impingement - consulted pain management for possible injection. Continue CM assistance with placement. Addendum - Attending - Attending Attestation Date/Time: 10/17/19 8741 I personally evaluated the patient and discussed the management with Dr. Burris. I agree with the History, Examination, Assessment and Plan documented above with any addition or exceptions noted below. Patient overall stable. We continue to work on back pain, Pain mgmt consulted and awaiting their input. Working on rehab/SNF placement and outpatient HD set up.
[2019-10-17] MEDS: Carvedilol 6.25 MG TAB PO SCH ×2 (09:01→16:40)
[2019-10-17] MEDS: Sevelamer Carbonate 800 MG TAB PO SCH ×3 (09:02→16:41)
[2019-10-17] MEDS: Heparin 5,000 UNITS/ML VIAL SC SCH ×2 (09:03→20:50)
[2019-10-17] MEDS: Furosemide 20 MG/2 ML VIAL SLOW IVP SCH (09:03)
[2019-10-17] MEDS: Amoxicillin/Potassium Clav 875 MG TAB PO SCH ×2 (09:03→20:50)
[2019-10-17] MEDS: Acyclovir 400 mg Tablet PO SCH ×3 (09:03→20:47)
[2019-10-17] MEDS: hydrALAZINE 25 MG TAB PO SCH ×3 (09:04→20:50)
[2019-10-17] MEDS: Lidocaine 5% Patch TD SCH (09:04)
[2019-10-17] MEDS: Tamsulosin HCl 0.4 MG CAP PO SCH (09:04)
--- NOTE | 2019-10-17 09:45 | PRG ---
DATE OF SERVICE: 10/17/2019 SUBJECTIVE: Mr. Borges is an 84-year-old white male, followed up by the Renal Service for his acute kidney injury on top of his chronic renal failure. He was originally initiated on dialysis due to progressive azotemia as well as volume overload. He has been doing well. He is currently on maintenance hemodialysis. I did note slight improvement of the creatinine in the last few days. His creatinine of 1.98 is the best number so far. He might be recovering with his acute kidney injury. No new complaints today. OBJECTIVE: VITAL SIGNS: Blood pressure is 152/73, heart rate 92, respiratory rate 18, temperature 97.5, and pulse ox 94%. GENERAL: Noted to be sleeping, but arousable, obese, comfortable, not in distress. SKIN: Adequate turgor. HEENT: He has pinkish conjunctivae. Anicteric sclerae. NECK: No neck mass. No carotid bruits. No JVD. CHEST: No deformities. LUNGS: Clear breath sounds. HEART: Normal sinus rhythm. No murmur. No gallops. No rubs. ABDOMEN: Globular, soft, and nontender. No masses. EXTREMITIES: No edema. No deformities. MEDICATIONS: Medications of October 17, 2019, reviewed. LABORATORY DATA: October 17, 2019; white count 17, hemoglobin 16.1, sodium 137, potassium 3.8, chloride 97, carbon dioxide 72, creatinine 1.98, glucose 120, calcium 2.9, and magnesium 2.0. ASSESSMENT AND PLAN: 1. Acute bronchitis, ? pneumonia, currently on Augmentin. 2. Chronic renal failure/acute kidney injury - consider a hemodynamically-mediated renal dysfunction on top of his chronic renal failure. He has been initiated on dialysis. Observe for a possible renal recovery where I can get him off dialysis. We will recheck basic metabolic again tomorrow. 3. Congestive heart failure, clinically much improved on low-dose diuretics. Overall, agree with current management. Job ID: [id number]
--- NOTE | 2019-10-17 11:16 | PRG ---
DATE OF SERVICE: 10/17/2019 SUBJECTIVE: Mr. Borges is doing better. He is not having any chest pain or pressure. OBJECTIVE: VITAL SIGNS: His blood pressure is 120/56 and pulse in the 80s, it is irregular. LUNGS: Clear. CARDIAC: Irregularly irregular, but somewhat distant. He does have a soft murmur of aortic stenosis. ABDOMEN: Obese and nontender. EXTREMITIES: There is only moderate edema better than before. LABORATORY: His creatinine is improved to 1.98. ASSESSMENT: 1. Renal failure, improving. 2. Atrial fibrillation, chronic (persistent, longstanding). 3. White count is somewhat elevated again at 17,000. 4. Platelet count is now back to normal. PLAN: 1. We will change him from heparin to reduced-dose Eliquis. 2. He is on intravenous diuretic. 3. Hydralazine and carvedilol. The patient's weight is down 21 pounds from the 28th. ADDENDUM: Apparently the patient is being considered to have a steroid injection done for back pain. We will hold off on the Eliquis until a decision is made about that. If he is not going to have an injection, we will start him on the Eliquis. If he is going to have an injection, we will wait till after that is done. Job ID: [id number]
[2019-10-17] MEDS: Fluticasone Propionate Nasal Spray 16 gm Bottle NASAL SCH (12:08)
[2019-10-17] MEDS ORDERED: Furosemide 20 MG TAB PO SCH (14:00)
[2019-10-17] MEDS: Lidocaine Patch Removal TOP SCH (20:50)
[2019-10-18 04:32] LABS: #Eosinphils 0.3 thou/uL (0.0-0.7); #Lymphocytes 0.9 thou/uL (1.20-3.40); #Monocytes 1.7 thou/uL (0.11-0.59); #Neutrophils 10.5 thou/uL (1.40-6.50); %Basophils 0.4 % (0.0-1.0); %Eosinophils 2.4 % (0.0-10.0); %Lymphocytes 6.9 % (21.0-51.0); %Monocytes 12.6 % (0.0-10.0); %Neutrophils 77.9 % (42.0-75.0); Hemoglobin 15.1 g/dL (14.0-18.0); Mean Corpuscular HGB CONC 33.1 g/dL (32.0-36.0); Mean Corpuscular Hemoglobin 31.4 pg (27.0-31.0); Mean Corpuscular Volume 94.8 fL (78.0-98.0); Mean Platelet Volume 8.7 fL (7.4-10.4); Platelet Count 136 thou/uL (130-400); RBC Distribution Width 13.6 % (11.5-14.5); White Blood Cell (WBC) Count 13.4 thou/uL (4.8-10.8)
[2019-10-18 04:52] LABS: Phosphorus 3.7 mg/dL (2.3-4.7)
[2019-10-18 04:56] LABS: Anion Gap 13 mmol/L (10-20); BUN (Urea Nitrogen) 74 mg/dL (8.4-25.7); Calc. Creatinine Clearance 49 mL/min (70-130); Calcium 8.9 mg/dL (7.8-10.44); Carbon Dioxide 34 mmol/L (23-31); Chloride 94 mmol/L (98-107); Estimated GFR-MDRD 34; Glucose 95 mg/dL (83-110); Magnesium 2.1 mg/dL (1.6-2.6); Potassium 3.5 mmol/L (3.5-5.1); Sodium 137 mmol/L (136-145)
--- NOTE | 2019-10-18 06:09 | PDOC.FM ---
- Subjective Subjective: Pt had no sitter with him this morning. He was resting well when I entered the room. Denies any complaint currently other than continued back pain that he states is "alright" currently. Agreeable with current plan of SNF placement. - Objective Vital Signs & Weight: Vital Signs (12 hours) Temp Pulse Resp BP Pulse Ox 10/18/19 04:00 97.0 F L 85 20 146/68 H 95 10/18/19 00:32 95 10/17/19 20:50 72 10/17/19 20:00 98.1 F 72 18 151/68 H 95 Weight Weight 119.748 kg Most Recent Monitor Data Heart Rate from ECG 82 NIBP 123/73 NIBP BP-Mean 89 Respiration from ECG 21 SpO2 93 I&O: 10/16/19 10/17/19 10/18/19 06:59 06:59 06:59 Intake Total 1300 1600 1320 Output Total 1775 525 500 Balance -475 1075 820 Result Diagrams: 10/18/19 04:02 10/18/19 04:02 Phys Exam - Physical Examination Constitutional: NAD Blepheritis and oral stomatitis Neck: full ROM Diminished bases with short inspiration, clear upper mcdaniels Regular rate, mildly irregular rhythm Gastrointestinal: soft, non-tender Musculoskeletal: no edema Neurological: moves all 4 limbs Psychiatric: normal affect Deviation from normal: Disoriented Skin: cap refill <2 seconds Dx/Plan (1) Bacteremia due to Gram-negative bacteria Code(s): R78.81 - BACTEREMIA Status: Acute (2) Congestive heart failure Code(s): I50.9 - HEART FAILURE, UNSPECIFIED Status: Acute (3) HTN (hypertension) Code(s): I10 - ESSENTIAL (PRIMARY) HYPERTENSION Status: Acute (4) Acute respiratory failure with hypoxia and hypercapnia Code(s): J96.01 - ACUTE RESPIRATORY FAILURE WITH HYPOXIA; J96.02 - ACUTE RESPIRATORY FAILURE WITH HYPERCAPNIA Status: Acute (5) Herpes stomatitis Code(s): B00.2 - HERPESVIRAL GINGIVOSTOMATITIS AND PHARYNGOTONSILLITIS Status : Acute - Plan Plan: 84 yo M with PMH prior dialysis presented to ED with SOB and was admitted with worsening renal function and respiratory status. Pasteurella bacteremia - 2/2 dog bite of lower extremity - Augmentin per Dr. Carver Herpetic Stomatitis, improving - Acyclovir Acute hypoxic hypercapneic respiratory failure, resolved - Weaned off supplemental O2 yesterday, satting 93% RA this a.m. CHF diastolic, concern for exacerbation - ECHO- diastolic CHF, mod/severe aortic stenosis - Continue coreg. Lasix 20 mg daily per cardiology. ESRD - Dialysis T, , - Appreciate recommendations from Dr. Branch - Approved for outpt dialysis at [place] - Dialysis today prior to DC Physical deconditioning - Continue PT/OT/speech. - Able to do minimal with PT. - Goal would be for rehab/SNF placement on DC as pt would likely not succeed on his own immediately following this admission Atrial fibrillation, chronic - Remains rate controlled - Was not on therapeutic anticoagulation at home, will continue to hold considering pt's risk factors after discussion with [facility] Thrombocytopenia - resolved NSTEMI 2/2 demand - resolved Mod/Severe aortic stenosis R shoulder pain/Back pain - present since admission, XR negative for shoulder abnormalities, MRI back significant DDD and central/foraminal stenosis - tramadol, tylenol prn - avoiding nephrotoxic rx and rx that could worsen delirium - consulted pain management for possible injection HTN - Normotensive. Will continue coreg per cardiology Code: Full PCP: Julissa Savage Dispo: PO abx for pasteurella bacteremia, O2 requirements now at baseline. Pain management unable to do elective injection at this time. Continue CM assistance with placement - approved for [facility] but [facility] prefers [facility] - awaiting approval today. Addendum - Attending - Attending Attestation Date/Time: 10/18/19 1111 I personally evaluated the patient and discussed the management with Dr. Burris. I agree with the History, Examination, Assessment and Plan documented above with any addition or exceptions noted below.
[2019-10-18] MEDS: hydrALAZINE 25 MG TAB PO SCH ×3 (08:28→22:28)
[2019-10-18] MEDS: Sevelamer Carbonate 800 MG TAB PO SCH ×3 (08:28→17:34)
[2019-10-18] MEDS: Fluticasone Propionate Nasal Spray 16 gm Bottle NASAL SCH (08:29)
[2019-10-18] MEDS: Amoxicillin/Potassium Clav 875 MG TAB PO SCH ×2 (08:29→22:28)
[2019-10-18] MEDS: Carvedilol 25 MG TAB PO SCH ×2 (08:29→17:34)
[2019-10-18] MEDS: traMADol HCl 50 MG TAB PO PRN ×3 (08:30→22:29)
[2019-10-18] MEDS: Lidocaine 5% Patch TD SCH (08:30)
[2019-10-18] MEDS: Tamsulosin HCl 0.4 MG CAP PO SCH (08:30)
[2019-10-18] MEDS: Acyclovir 400 mg Tablet PO SCH ×3 (08:34→22:28)
[2019-10-18] MEDS: Heparin 5,000 UNITS/ML VIAL SC SCH ×2 (08:35→22:57)
[2019-10-18] MEDS ORDERED: Furosemide 20 MG TAB PO SCH (09:00)
--- NOTE | 2019-10-18 09:58 | PRG ---
DATE OF SERVICE: 10/18/2019 SUBJECTIVE: Mr. Borges's main complaint is low back pain. He has a history of spinal stenosis. His breathing is improved. He is not having chest pain. He had urinary retention and an in-and-out catheter revealed that he had a liter of urine in his bladder. OBJECTIVE: VITAL SIGNS: Blood pressure is 158/76, pulse 80 and it is irregular. LUNGS: Clear. CARDIAC: Irregularly irregular. ABDOMEN: Obese. EXTREMITIES: There is [id number] edema, but it is improved. LABORATORY DATA: The patient's creatinine continues to improve at 1.88. ASSESSMENT: 1. Atrial fibrillation, longstanding, persistent, rate controlled. 2. Severe back pain. 3. Aortic stenosis, moderate to severe. 4. Urinary retention. He is on tamsulosin. PLAN: 1. Suspect he is going to need a Swain catheter. 2. I would recommend that talking with the radiologist to see if he would be a candidate for steroid injection and the back pain seems to be limiting him even to get up out of bed. 3. We will hold off anticoagulation for now until decision is made about injection for his back. Job ID: [id number]
--- NOTE | 2019-10-18 11:03 | PRG ---
DATE OF SERVICE: 10/18/2019 SUBJECTIVE: Mr. Borges is an 84-year-old white male, who was followed up by the Renal Service for his acute kidney injury on top of his chronic renal failure. Due to volume overload and progressive azotemia, he was placed on dialysis. During the last few days, we noted some improvement with the renal function. For that reason, we will discontinue dialysis. He also had difficulty passing his urine. A Swain catheter was placed and about a L of urine output was noted. The patient may have some degree of prostatism. No other complaints. No chest pain or shortness of breath. OBJECTIVE: VITAL SIGNS: Blood pressure is 149/73, heart rate 76, respiratory rate 18, temperature 98.2, and pulse ox 93%. GENERAL: Noted to be awake, alert, comfortable, obese, not in distress. SKIN: Adequate turgor. HEENT: Pinkish conjunctivae. Anicteric sclerae. NECK: No neck mass. No carotid bruits. No JVD. CHEST: No deformities. LUNGS: Clear breath sounds. No wheezing. No crackles. HEART: Normal sinus rhythm. No murmurs, gallops, or rubs. ABDOMEN: Globular, soft, nontender. No masses. EXTREMITIES: No edema. No deformities. MEDICATIONS: Medications of October 18, 2019, was reviewed. LABORATORY DATA: Laboratories of October 18, 2019; sodium 137, potassium 3.5, chloride 94, carbon dioxide 34, BUN 74, creatinine 1.88, glucose 95, calcium 8.9, magnesium 2.1. Procalcitonin 1.19. White count 13.4, hemoglobin 15.1. ASSESSMENT AND PLAN: 1. Acute kidney injury - consider superimposed hemodynamically-mediated dysfunction on top of his chronic renal failure. Renal function has much improved. We will hold off dialysis temporarily with this patient. I feel that he has enough renal recovery to get him off dialysis. 2. Urinary hesitancy/prostatism - Swain catheter inserted and removed 1 L of urine. If he does not spontaneously pass his urine, he may need to eventually have a Swain catheter and have Urology evaluate him. 3. Shortness of breath, much improved. Currently, on furosemide. 4. Recheck basic metabolic in a.m. Job ID: [id number]
[2019-10-18] MEDS: Acetaminophen 325 MG TAB PO PRN (12:06)
[2019-10-18] MEDS ORDERED: Furosemide 20 MG/2 ML VIAL SLOW IVP SCH (12:15)
[2019-10-18 12:25] LABS: Actual Bicarbonate (HCO3a) 28.5 mEq/L (22-28); Base Excess (BEa) 4.3 mEq/L (-2.0 to +3.0); CO2 Tension 40.9 mmHg (35.0-45.0); Calcium, Ionized 1.17 mmol/L (1.12-1.30); Carboxyhemoglobin (COHb) 1.7 gm% (0.0-3.0); O2 Tension (PaO2) 101.8 mmHg (> 60.0); Potassium - ABG Lab 4.32 mmol/L (3.70-5.30); pH, Arterial 7.46 (7.35-7.45)
--- NOTE | 2019-10-18 12:54 | RAD ---
EXAM: XR Chest 1 View Portable PROVIDED CLINICAL HISTORY: Shortness of breath COMPARISON: 10/09/2019 FINDINGS: Cardiac silhouette remains enlarged. Evaluation is limited by patient body habitus. The left hemidiap hragm is not well seen which may reflect left basilar pleural and/or parenchymal opacity that could also be related to cardiomegaly and patient body habitus. The right lung appears clear. There is no e vidence for pneumothorax. IMPRESSION: Limited study without definite significant interval change.
--- NOTE | 2019-10-18 13:55 | PRG ---
DATE OF SERVICE: 10/18/2019 SUBJECTIVE: Mr. Borges developed respiratory distress. He was found to have urinary retention. A Swain was inserted and thus far, we have already about 400 mL out, more to come. He is arousable. He follows commands. LUNGS: With fairly clear breath sounds. HEART: S1 and S2, regular rate. ABDOMEN: Moderately distended, but not tender. Clear urine color. No sediment. The right leg is much markedly improved. LABORATORY DATA: Sodium 137, creatinine 1.88, and white cell count is 13.4, hemoglobin 15, platelets 136se 7% neutrophils. Chest x-ray completed showed enlarged. The cardiac silhouette, left right lower lung. No pneumothorax. ASSESSMENT AND DISCUSSION: Ischemic cardiomyopathy, chronic renal insufficiency with marked improvement, cellulitis of the right lower extremity due to pasteurella multocida associated with house pet injury according to one of his relatives, a dog bite. This is associated with bacteremia, herpetic stomatitis, and now he developed urinary retention and this will delay the discharge planning. Job ID: [id number] [facility]
[2019-10-18 13:57] VITALS: BMI 33.9
[2019-10-18] MEDS: Lidocaine Patch Removal TOP SCH (22:29)
[2019-10-19 04:19] LABS: #Eosinphils 0.2 thou/uL (0.0-0.7); #Lymphocytes 0.7 thou/uL (1.20-3.40); #Monocytes 1.8 thou/uL (0.11-0.59); #Neutrophils 12.5 thou/uL (1.40-6.50); %Basophils 0.2 % (0.0-1.0); %Eosinophils 1.5 % (0.0-10.0); %Lymphocytes 4.7 % (21.0-51.0); %Monocytes 11.9 % (0.0-10.0); %Neutrophils 81.7 % (42.0-75.0); Hemoglobin 14.6 g/dL (14.0-18.0); Mean Corpuscular HGB CONC 32.6 g/dL (32.0-36.0); Mean Corpuscular Hemoglobin 30.8 pg (27.0-31.0); Mean Corpuscular Volume 94.3 fL (78.0-98.0); Mean Platelet Volume 8.5 fL (7.4-10.4); Platelet Count 128 thou/uL (130-400); RBC Distribution Width 13.7 % (11.5-14.5); Red Blood Cell (RBC) Count 4.74 mill/uL (4.70-6.10); White Blood Cell (WBC) Count 15.3 thou/uL (4.8-10.8)
[2019-10-19 04:47] LABS: Anion Gap 13 mmol/L (10-20); BUN (Urea Nitrogen) 75 mg/dL (8.4-25.7); Calc. Creatinine Clearance 51 mL/min (70-130); Calcium 8.7 mg/dL (7.8-10.44); Carbon Dioxide 31 mmol/L (23-31); Chloride 94 mmol/L (98-107); Estimated GFR-MDRD 37; Glucose 92 mg/dL (83-110); Potassium 3.6 mmol/L (3.5-5.1); Sodium 134 mmol/L (136-145)
--- NOTE | 2019-10-19 06:21 | PDOC.FM ---
- Subjective Subjective: Pt quite lucid this morning. No events overnight. Asked questions about his plan of care and agreed with going to [place]. Denies any complaints this morning. Asked about back pain and he stated that it is alright right now. No difficulties with breathing. Vitals all stable. - Objective Vital Signs & Weight: Vital Signs (12 hours) Temp Pulse Resp BP Pulse Ox 10/19/19 00:40 97 10/18/19 22:28 74 10/18/19 20:00 97.6 F 74 18 120/72 97 Weight Admit Weight 130.725 kg Weight 119.748 kg Most Recent Monitor Data Heart Rate from ECG 82 NIBP 123/73 NIBP BP-Mean 89 Respiration from ECG 21 SpO2 93 I&O: 10/17/19 10/18/19 10/19/19 06:59 06:59 06:59 Intake Total 1600 1320 1680 Output Total 535 493 4663 Balance 1075 820 -1920 Result Diagrams: 10/19/19 03:48 10/19/19 03:48 Phys Exam - Physical Examination Constitutional: NAD HEENT: moist MMs, sclera anicteric Blepharitis much improved, healing herpetic lesions Neck: full ROM Respiratory: clear to auscultation bilateral Irregularly irregular rhythm, regular rate, systolic ejection murmur Gastrointestinal: soft, non-tender Musculoskeletal: no edema, pulses present Neurological: non-focal, moves all 4 limbs Psychiatric: normal affect Deviation from normal: A&O x1 - much more lucid Skin: cap refill <2 seconds Dx/Plan (1) Bacteremia due to Gram-negative bacteria Code(s): R78.81 - BACTEREMIA Status: Acute (2) Congestive heart failure Code(s): I50.9 - HEART FAILURE, UNSPECIFIED Status: Acute (3) HTN (hypertension) Code(s): I10 - ESSENTIAL (PRIMARY) HYPERTENSION Status: Acute (4) Acute respiratory failure with hypoxia and hypercapnia Code(s): J96.01 - ACUTE RESPIRATORY FAILURE WITH HYPOXIA; J96.02 - ACUTE RESPIRATORY FAILURE WITH HYPERCAPNIA Status: Acute (5) Herpes stomatitis Code(s): B00.2 - HERPESVIRAL GINGIVOSTOMATITIS AND PHARYNGOTONSILLITIS Status : Acute - Plan Plan: 84 yo M with PMH prior dialysis presented to ED with SOB and was admitted with worsening renal function and respiratory status. Pasteurella bacteremia - 2/2 dog bite of lower extremity - Augmentin per Dr. Carver Herpetic Stomatitis, improving - Acyclovir Acute hypoxic hypercapneic respiratory failure, resolved - Remains on room air with sats >93% CHF diastolic - ECHO- diastolic CHF, mod/severe aortic stenosis - Continue coreg. Lasix 20 mg daily per cardiology. - Extra 20mg given yesterday ESRD - resolved, CKD 3b currently - Per Dr. Branch will stop dialysis for now as renal function has improve - Will continue to monitor - Has been accepted for outpt dialysis Physical deconditioning - Continue PT/OT/speech. - Able to do minimal with PT. - DC to [facility] today for continued rehab Atrial fibrillation, chronic - Remains rate controlled - Was not on therapeutic anticoagulation at home, will continue to hold considering pt's risk factors after discussion with [facility] Thrombocytopenia - resolved NSTEMI 2/2 demand - resolved Mod/Severe aortic stenosis R shoulder pain/Back pain - Not currently able to receive injection due to postponement of elective procedures HTN - Normotensive. Will continue coreg per cardiology Code: Full PCP: Julissa Savage Dispo: PO abx for pasteurella bacteremia, O2 requirements remain at baseline. Pain management unable to do elective injection at this time. Approved for placement at [facility] in [place]. Plan for DC today. Addendum - Attending - Attending Attestation Date/Time: 10/19/19 8716 I personally evaluated the patient and discussed the management with Dr. Burris. I agree with the History, Examination, Assessment and Plan documented above with any addition or exceptions noted below. Patient doing well. No respiratory issues. He is on room air, able to work with PT today. He is stable for dc to SNF. Nephro will continue to follow outpatient , as will ID due to pasteurella bacteremia. Will need bladder training and possible urological evaluation in the outpatient setting.
[2019-10-19] MEDS ORDERED: Potassium Chloride 20 MEQ TAB PO SCH (09:00)
[2019-10-19] MEDS ORDERED: Furosemide 40 MG TAB PO SCH (09:00)
[2019-10-19] MEDS ORDERED: Heparin 5,000 UNITS/ML VIAL SC SCH (09:00)
[2019-10-19] MEDS ORDERED: Apixaban 2.5 MG TAB PO SCH (09:00)
--- NOTE | 2019-10-19 09:02 | PRG ---
DATE OF SERVICE: 10/19/2019 SUBJECTIVE: Mr. Borges is doing better today. He says his back pain is better. He is not having chest pain. He is not short of breath. OBJECTIVE: VITAL SIGNS: His blood pressure is 135/78, pulse 80 and it is irregular. LUNGS: Clear. ABDOMEN: Obese. EXTREMITIES: [id number] edema. PERTINENT LABORATORY DATA: The platelet count is 128. Kidney function continues to improve to 1.78. GFR is 37. ASSESSMENT: 1. Atrial fibrillation, chronic (persistent, long standing). 2. Renal failure, continuing to improve. 3. 84 years of age. 4. History of sepsis. I think that was probably precipitated his multiorgan failure. Fortunately, this is all getting better. 5. Bdequwdu-lk-sqvtxo aortic stenosis. PLAN: 1. I would recommend at least low-dose Eliquis, I believe he is at high risk of deep venous thrombosis as well as atrial fibrillation with embolic events, has a very high CHADS-VASc score. I will use a low-dose Eliquis in view of his age over 79 and renal failure. 2. Agree with Swain catheter as he had a liter of urine in his bladder before he had in and out cath yesterday. 3. Increase Lasix to 40 mg a day. 4. Add potassium. 5. Plan is to be moved to [place]. Job ID: [id number]
--- NOTE | 2019-10-19 09:23 | PRG ---
DATE OF SERVICE: 10/19/2019 SUBJECTIVE: Mr. Borges is an 84-year-old white male, who was seen by the Renal Service for his acute kidney injury on top of his chronic renal failure. Due to the volume overload and progressive azotemia, he was placed on dialysis. However, renal function improved, urine output has picked up. He has been placed off hemodialysis for the moment. He has also been evaluated by Dr. Carver, the Infectious Disease business consultant for his presumed acute bronchitis. He did have cellulitis of the right lower extremity due to Pasteurella multocida which is associated with house pet. In addition, the patient has difficulty passing his urine and for that reason a Swain catheter has been inserted. Please note, the patient has also herpes stomatitis. Currently, on acyclovir. No new complaints today. No chest pain or shortness of breath. OBJECTIVE: VITAL SIGNS: Blood pressure 135/78, heart rate 79, respiratory rate 16, temperature 97.6, pulse ox 95%. GENERAL: Noted to be awake, alert, comfortable, not in overt distress. SKIN: Adequate turgor. HEENT: Pinkish conjunctivae, anicteric sclerae, no neck mass, no carotid bruits, no JVD. CHEST: No deformities. LUNGS: Clear breath sounds. HEART: Normal sinus rhythm. No murmur. No gallops. No rubs. ABDOMEN: Globular, soft, nontender, no masses. EXTREMITIES: No edema, no deformities. MEDICATIONS: Medications of October 19, 2019, were reviewed. LABORATORY DATA: October 19, 2019, white count 15.2, hemoglobin 14.6. Sodium 134, potassium 3.6, chloride 94, carbon dioxide 31, BUN 75, creatinine 1.78, glucose 92, calcium 8.7. Procalcitonin 1.19. ASSESSMENT AND PLAN: 1. Acute kidney injury/chronic renal failure-much improved renal function. Dialysis has been discontinued. Continue supportive care. 2. Congestive heart failure. Currently, on Lasix 40 mg tablet once a day-currently on an increased dose. 3. Cellulitis/bronchitis-the patient is followed up by Dr. Carver. 4. He is status post IV antibiotics, but currently is on Augmentin p.o. at 875 mg p.o. b.i.d. 5. Herpes stomatitis, currently on acyclovir. 6. Continue current management, recheck basic metabolic profile, CBC in a.m. Job ID: [id number]
[2019-10-19] MEDS: Lidocaine 5% Patch TD SCH (09:38)
[2019-10-19] MEDS: Acyclovir 400 mg Tablet PO SCH (09:40)
[2019-10-19] MEDS: Amoxicillin/Potassium Clav 875 MG TAB PO SCH (09:40)
[2019-10-19] MEDS: Sevelamer Carbonate 800 MG TAB PO SCH ×2 (09:40→13:04)
[2019-10-19] MEDS: Tamsulosin HCl 0.4 MG CAP PO SCH (09:41)
[2019-10-19] MEDS: Carvedilol 25 MG TAB PO SCH (09:41)
[2019-10-19] MEDS: hydrALAZINE 25 MG TAB PO SCH (10:40)
[2019-10-19] MEDS: Fluticasone Propionate Nasal Spray 16 gm Bottle NASAL SCH (10:47)
[2019-10-19] MEDS ORDERED: Tamsulosin HCl 0.4 MG CAP PO SCH (11:00)
[2019-10-19 12:52] VITALS: BP 141/66; TEMP 97.8
[2019-10-20] MEDS ORDERED: Potassium Chloride 20 MEQ TAB PO SCH (08:00)
[2019-10-20] MEDS ORDERED: Tamsulosin HCl 0.4 MG CAP PO SCH (09:00)
== END 2019-10-19 14:15 | DRG 871 ==
LOC: ERS 23:20 → 2NO 10-08 01:11 → IMCU/EMU 10-09 23:22 → 2NO 10-12 20:23
PROVIDERS: ADMIT Family Medicine; ATTEND Family Medicine
PROC: 5A09457 Assistance with Respiratory Ventilation, 24-96 Consecutive Hours, Continuous Positive Airway Pressure (ICD-10-PCS; principal; 2019-10-09)
PROC: 5A1D70Z Performance of Urinary Filtration, Intermittent, Less than 6 Hours Per Day (ICD-10-PCS; 2019-10-10)
DX: A41.9 Sepsis, unspecified organism (principal); N18.6 End stage renal disease; J18.9 Pneumonia, unspecified organism; J96.01 Acute respiratory failure with hypoxia; J96.02 Acute respiratory failure with hypercapnia; G93.41 Metabolic encephalopathy; I21.A1 Myocardial infarction type 2; I13.2 Hypertensive heart and chronic kidney disease with heart failure and with stage 5 chronic kidney disease, or end stage renal disease; E87.2 Acidosis; I50.32 Chronic diastolic (congestive) heart failure; J44.1 Chronic obstructive pulmonary disease with (acute) exacerbation; J44.0 Chronic obstructive pulmonary disease with (acute) lower respiratory infection; L03.115 Cellulitis of right lower limb; N17.9 Acute kidney failure, unspecified; I48.21 Permanent atrial fibrillation; B00.2 Herpesviral gingivostomatitis and pharyngotonsillitis; Z66 Do not resuscitate; M10.9 Gout, unspecified; D69.6 Thrombocytopenia, unspecified; M25.511 Pain in right shoulder; I35.0 Nonrheumatic aortic (valve) stenosis; R65.20 Severe sepsis without septic shock; E66.9 Obesity, unspecified; B96.89 Other specified bacterial agents as the cause of diseases classified elsewhere; I25.5 Ischemic cardiomyopathy; M48.061 Spinal stenosis, lumbar region without neurogenic claudication; M51.36 Other intervertebral disc degeneration, lumbar region; E83.39 Other disorders of phosphorus metabolism; R33.9 Retention of urine, unspecified; I25.2 Old myocardial infarction; Z88.8 Allergy status to other drugs, medicaments and biological substances; Z79.899 Other long term (current) drug therapy; Z87.891 Personal history of nicotine dependence; Z99.2 Dependence on renal dialysis; Z68.34 Body mass index [BMI] 34.0-34.9, adult
CPT/HCPCS: 36415; 36416; 71045; 72148; 80048; 80053; 80076; 80202; 82553; 82805; 83735; 83880; 84100; 84145; 84443; 84484; 85025; 85060; 85652; 85730; 86140; 86580; 86704; 86706; 86803; 87340; 90471; 90670; 90935; 93306; 93798; 94150; 94640; 94660; 96374; C1752; G0009; G0257; J0360; J0692; J0696; J1642; J1644; J1940; J2920; J3370; J3490; J7050; J7512; J7620; P9047